=== PATIENT | female | born 1940 | race African-American/Black ===

== ENCOUNTER 2017-07-22 11:45 | Inpatient (IN) | payer MEDICARE, MEDICAID ==
[~2017-07-22] VITALS: Ht 162.6 cm; Wt 127.9 kg
[~2017-07-22 11:45] MED LIST: ACET-2853 PO; AMLO10TA80 PO; ANAS1TAB7 PO; ASPI-1159 PO; COR6 PO; GABA-531 PO; GLIP5TAB12 PO; ISOS30TA6 PO; ZET10 PO
[2017-07-22] MEDS ORDERED: ACETAMINOPHEN 325MG TABLET PO STA (13:05)
[2017-07-22] MEDS ORDERED: KETOROLAC 30MG/ML VIAL IV STA (13:05)
[2017-07-22] MEDS ORDERED: VANCOMYCIN 1 G PREMIX 200 ML IV ONE (13:15)
[2017-07-22] MEDS ORDERED: PIPERACILLIN/TAZ 3.375G PREMIX 50 ML IV ONE (13:15)
[2017-07-22] MEDS ORDERED: SODIUM CHLORIDE 0.9% 1000ML BAG (SEPSIS BOLUS) IV ONE (13:15)
[2017-07-22 13:29] LABS: BASOPHILS % 0.2 % (0.0-2.0); HEMATOCRIT. 30.4 % (36.0-48.0); HEMOGLOBIN. 10.1 g/dL (12.0-16.0); LYMPHOCYTES % 7.4 % (20.0-50.0); MEAN CORPUSCULAR HEMOGLOBIN 30.8 pg (28.0-32.0); MEAN CORPUSCULAR VOLUME 92.7 fL (81.0-99.0); MEAN PLATELET VOLUME 6.9 fl (7.4-10.4); MONOCYTES % 5.5 % (2.0-8.0); NEUTROPHILS % 86.9 % (40.0-76.0); PLATELET 310 x1000/uL (130-400); RED BLOOD CELL COUNT 3.28 mill/uL (4.2-5.4); RED CELL DISTRIBUTION WIDTH 16.6 % (11.6-14.6)
[2017-07-22 13:32] LABS: CHLORIDE 101 mEq/L (98-107)
[2017-07-22 13:34] LABS: INR 1.1; PROTHROMBIN TIME 11.9 sec (9.4-11.6)
[2017-07-22] MEDS ORDERED: IPRATROPIUM/ALBUTEROL 0.5-3(2.5)MG/3ML NEB INH PRN (15:45)
[2017-07-22] MEDS ORDERED: VANCOMYCIN 1 G PREMIX 200 ML IV SCH (15:45)
[2017-07-22] MEDS ORDERED: HYDROCODONE/ACETAMINOPHEN 5/325MG TABLET PO PRN (15:45)
[2017-07-22] MEDS ORDERED: ONDANSETRON HCL 4MG/2ML VIAL IV PRN (15:45)
[2017-07-22 15:58] LABS: BG BASE EXCESS -1.2 mmol/L (-2.0-2.0); BG CARBOXYHEMOGLOBIN 1.1 % (0.5-1.5); BG DEOXYHEMOGLOBIN 4.1 % (0.0-5.0); BG FRACTION INSPIRED OXYGEN 21; BG HCO3 ACT 22.7 mmol/L (22.0-26.0); BG METHEMOGLOBIN 0.2 % (0.0-1.5); BG OXYGEN SATURATION 95.8 % (92.0-98.5); BG OXYHEMOGLOBIN 94.6 % (94.0-97.0); BG PCO2 34.7 mmHg (35.0-45.0); BG PH 7.434 (7.350-7.450); BG PO2 80.8 mmHg (75.0-100.0); BG SAMPLE SITE LEFT RADIAL; BG TOTAL HEMOGLOBIN 9.6 g/dL (12.0-18.0); BG VENT MODE ROOM AIR
[2017-07-22] MEDS ORDERED: CLONIDINE 0.1MG TABLET PO ONE (17:00)
[2017-07-22] MEDS: CLONIDINE 0.1MG TABLET PO PRN (20:48)
[2017-07-22] MEDS: FUROSEMIDE 40MG/4ML VIAL IV SCH (20:50)
[2017-07-22 22:17] LABS: CLARITY URINE CLEAR (CLEAR); COLOR URINE YELLOW (YELLOW); KETONES URINE NEGATIVE (NEGATIVE); LEUKOCYTE ESTERASE URINE NEGATIVE (NEGATIVE); NITRITE URINE NEGATIVE (NEGATIVE); OCCULT BLOOD URINE TRACE (NEGATIVE); PROTEIN URINE NEGATIVE (NEGATIVE); SPECIFIC GRAVITY URINE 1.006 (1.005-1.030); UROBILINOGEN URINE 0.2 E.U./dL (0.2-1.0)
[2017-07-22 22:40] LABS: OPIATES URINE SCREEN NEGATIVE (NEGATIVE)
[2017-07-22 22:41] LABS: *AMPHETAMINES SCREEN URINE NEGATIVE (NEGATIVE); *BARBITURATES SCREEN URINE NEGATIVE (NEGATIVE); *BENZODIAZEPINES SCREEN URINE NEGATIVE (NEGATIVE); *COCAINE SCREEN URINE NEGATIVE (NEGATIVE); CANNABINOID URINE SCREEN NEGATIVE (NEGATIVE); METHADONE URINE SCREEN NEGATIVE (NEGATIVE); PHENCYCLIDINE URINE SCREEN NEGATIVE (NEGATIVE)
[2017-07-22 23:00] VITALS: BP 181/79
[2017-07-23] VITALS (7 sets, daily range): BP systolic 117–181; BP diastolic 37–79
[2017-07-23] MEDS ORDERED: PIPERACILLIN/TAZ 3.375G PREMIX 50 ML IV SCH ×2 (01:00→14:00)
[2017-07-23] MEDS ORDERED: DEXTROSE 50% WATER 50ML SYRINGE IV PRN (01:15)
[2017-07-23] MEDS: PIPERACILLIN/TAZ 2.25G PREMIX 50 ML IV SCH ×2 (02:26→08:10)
[2017-07-23] MEDS: ACETAMINOPHEN 325MG TABLET PO PRN ×3 (02:34→17:15)
[2017-07-23] MEDS ORDERED: VANCOMYCIN 1 G PREMIX 200 ML IV SCH (03:00)
[2017-07-23] MEDS: BLOOD SUGAR DIAGNOSTIC STRIP TEST SCH ×4 (07:48→21:45)
[2017-07-23] MEDS: INSULIN LISPRO 100 UNITS/ML SUBCUT SCH ×4 (07:49→20:37)
[2017-07-23] MEDS: FUROSEMIDE 40MG/4ML VIAL IV SCH (08:10)
[2017-07-23] MEDS: ENOXAPARIN 40MG/0.4ML SYR SUBCUT SCH (08:10)
[2017-07-23] MEDS: CLONIDINE 0.1MG TABLET PO PRN (08:11)
[2017-07-23 10:17] LABS: HEMATOCRIT. 27.9 % (36.0-48.0); HEMOGLOBIN. 9.1 g/dL (12.0-16.0); MEAN CORPUSCULAR HEMOGLOBIN 30.4 pg (28.0-32.0); MEAN CORPUSCULAR VOLUME 92.8 fL (81.0-99.0); MEAN PLATELET VOLUME 7.6 fl (7.4-10.4); PLATELET 258 x1000/uL (130-400); RED CELL DISTRIBUTION WIDTH 17.1 % (11.6-14.6)
[2017-07-23 10:38] LABS: CHLORIDE 105 mEq/L (98-107)
[2017-07-23 10:47] LABS: LDL CHOLESTEROL 62 mg/dL (5-100)
[2017-07-23 10:49] LABS: CREATINE KINASE 396 IU/L (26-192); HDL CHOLESTEROL 52 mg/dL (40-59)
[2017-07-23 10:58] LABS: T4 FREE 1.59 ng/dL (0.76-1.46)
[2017-07-23 12:38] LABS: PLATELET ESTIMATE NORMAL
[2017-07-23] MEDS: SILVER SULFADIAZINE 1% CREAM 25GM TOP SCH (16:00)
[2017-07-23] MEDS ORDERED: POTASSIUM CHLORIDE 20MEQ TABLET SR PO SCH (17:45)
[2017-07-23] MEDS: VANCOMYCIN 1 G PREMIX 200 ML IV SCH (20:32)
[2017-07-23] MEDS: MEROPENEM 1,000 MG in SODIUM CHLORIDE 0.9% 100 ML IV SCH (22:54)
[2017-07-24] VITALS (7 sets, daily range): BP systolic 124–190; BP diastolic 46–79
[2017-07-24] MEDS: ACETAMINOPHEN 325MG TABLET PO PRN ×3 (00:18→19:52)
[2017-07-24] MEDS: BLOOD SUGAR DIAGNOSTIC STRIP TEST SCH ×4 (06:15→20:40)
[2017-07-24 06:45] LABS: AMMONIA < 10 uMol/L (<32)
[2017-07-24 06:48] LABS: HEMOGLOBIN 8.3 g/dL (12.0-16.0); MEAN CORPUSCULAR HEMOGLOBIN 30.8 pg (28.0-32.0); MEAN CORPUSCULAR VOLUME 93.1 fL (81.0-99.0); PLATELET 267 x1000/uL (130-400); RED BLOOD CELL COUNT 2.69 mill/uL (4.2-5.4); RED CELL DISTRIBUTION WIDTH 16.4 % (11.6-14.6)
[2017-07-24] MEDS: INSULIN LISPRO 100 UNITS/ML SUBCUT SCH ×4 (07:36→22:03)
[2017-07-24] MEDS: ENOXAPARIN 40MG/0.4ML SYR SUBCUT SCH (09:07)
[2017-07-24] MEDS: FUROSEMIDE 40MG/4ML VIAL IV SCH (09:07)
[2017-07-24] MEDS: SILVER SULFADIAZINE 1% CREAM 25GM TOP SCH (09:08)
[2017-07-24] MEDS: AMLODIPINE 10MG TABLET PO SCH (10:14)
[2017-07-24] MEDS: MEROPENEM 1,000 MG in SODIUM CHLORIDE 0.9% 100 ML IV SCH ×2 (10:14→22:06)
[2017-07-24] MEDS ORDERED: POTASSIUM CHLORIDE 20MEQ TABLET SR PO NR (12:00)
[2017-07-24] MEDS: METOPROLOL TARTRATE 25MG TABLET PO SCH (20:29)
[2017-07-24] MEDS: VANCOMYCIN 1 G PREMIX 200 ML IV SCH (20:30)
[2017-07-24] MEDS: CLONIDINE 0.1MG TABLET PO PRN (20:36)
[2017-07-25 04:00] VITALS: BP 176/67
[2017-07-25] MEDS: BLOOD SUGAR DIAGNOSTIC STRIP TEST SCH ×4 (06:35→21:00)
[2017-07-25 06:40] LABS: HEMOGLOBIN. 7.9 g/dL (12.0-16.0); MEAN CORPUSCULAR HEMOGLOBIN 30.4 pg (28.0-32.0); MEAN CORPUSCULAR VOLUME 92.6 fL (81.0-99.0); PLATELET 273 x1000/uL (130-400); RED BLOOD CELL COUNT 2.59 mill/uL (4.2-5.4); RED CELL DISTRIBUTION WIDTH 16.5 % (11.6-14.6)
[2017-07-25 06:49] LABS: CHLORIDE 106 mEq/L (98-107)
[2017-07-25] MEDS: INSULIN LISPRO 100 UNITS/ML SUBCUT SCH ×4 (07:58→21:00)
[2017-07-25 08:00] VITALS: BP 170/65
[2017-07-25] MEDS: SILVER SULFADIAZINE 1% CREAM 25GM TOP SCH (09:00)
[2017-07-25] MEDS: AMLODIPINE 10MG TABLET PO SCH (10:06)
[2017-07-25] MEDS: FUROSEMIDE 40MG/4ML VIAL IV SCH (10:06)
[2017-07-25] MEDS: METOPROLOL TARTRATE 25MG TABLET PO SCH (10:06)
[2017-07-25] MEDS: MEROPENEM 1,000 MG in SODIUM CHLORIDE 0.9% 100 ML IV SCH (10:06)
[2017-07-25] MEDS: ENOXAPARIN 40MG/0.4ML SYR SUBCUT SCH (10:07)
[2017-07-25 12:00] VITALS: BP 157/66
[2017-07-25 13:56] LABS: PLATELET ESTIMATE NORMAL
[2017-07-25] MEDS: VANCOMYCIN 1 G PREMIX 200 ML IV SCH (14:34)
[2017-07-25 16:00] VITALS: BP 138/74
[2017-07-25 20:43] VITALS: BP 155/70
[2017-07-25] MEDS: METOPROLOL TARTRATE 50MG TABLET PO SCH (22:07)
[2017-07-25] MEDS: ACETAMINOPHEN 325MG TABLET PO PRN (22:07)
[2017-07-26] VITALS (7 sets, daily range): BP systolic 121–185; BP diastolic 48–80
[2017-07-26] MEDS: MEROPENEM 1,000 MG in SODIUM CHLORIDE 0.9% 100 ML IV SCH ×3 (00:18→22:30)
[2017-07-26] MEDS: VANCOMYCIN 1 G PREMIX 200 ML IV SCH (00:52)
[2017-07-26 06:26] LABS: HEMATOCRIT 27.2 % (36.0-48.0); HEMOGLOBIN 8.8 g/dL (12.0-16.0); MEAN CORPUSCULAR VOLUME 92.7 fL (81.0-99.0); RED BLOOD CELL COUNT 2.93 mill/uL (4.2-5.4); RED CELL DISTRIBUTION WIDTH 16.6 % (11.6-14.6)
[2017-07-26] MEDS: CLONIDINE 0.1MG TABLET PO PRN (06:39)
[2017-07-26 07:55] LABS: CHLORIDE 102 mEq/L (98-107)
[2017-07-26] MEDS: BLOOD SUGAR DIAGNOSTIC STRIP TEST SCH ×4 (08:00→21:00)
[2017-07-26] MEDS: INSULIN LISPRO 100 UNITS/ML SUBCUT SCH ×4 (08:00→21:00)
[2017-07-26] MEDS: FUROSEMIDE 40MG/4ML VIAL IV SCH (09:56)
[2017-07-26] MEDS: AMLODIPINE 10MG TABLET PO SCH (09:57)
[2017-07-26] MEDS: METOPROLOL TARTRATE 50MG TABLET PO SCH ×2 (09:57→21:05)
[2017-07-26] MEDS: SILVER SULFADIAZINE 1% CREAM 25GM TOP SCH (09:58)
[2017-07-26] MEDS: ENOXAPARIN 40MG/0.4ML SYR SUBCUT SCH (09:58)
[2017-07-26 10:18] LABS: PLATELET 282 x1000/uL (130-400)
[2017-07-26] MEDS: ACETAMINOPHEN 325MG TABLET PO PRN (16:25)
[2017-07-26] MEDS: LINEZOLID 600 MG PREMIX 300 ML IV SCH (19:16)
[2017-07-27] VITALS (10 sets, daily range): BP systolic 127–154; BP diastolic 51–71
[2017-07-27] MEDS: LINEZOLID 600 MG PREMIX 300 ML IV SCH ×2 (05:44→18:02)
[2017-07-27 06:48] LABS: HEMATOCRIT 24.2 % (36.0-48.0); HEMOGLOBIN 7.9 g/dL (12.0-16.0); MEAN CORPUSCULAR HEMOGLOBIN 30.1 pg (28.0-32.0); MEAN CORPUSCULAR VOLUME 92.2 fL (81.0-99.0); PLATELET 307 x1000/uL (130-400); RED BLOOD CELL COUNT 2.63 mill/uL (4.2-5.4); RED CELL DISTRIBUTION WIDTH 16.6 % (11.6-14.6)
[2017-07-27 07:29] LABS: CHLORIDE 99 mEq/L (98-107)
[2017-07-27] MEDS: BLOOD SUGAR DIAGNOSTIC STRIP TEST SCH ×4 (07:40→20:42)
[2017-07-27] MEDS: SILVER SULFADIAZINE 1% CREAM 25GM TOP SCH (09:00)
[2017-07-27] MEDS: ENOXAPARIN 40MG/0.4ML SYR SUBCUT SCH (09:00)
[2017-07-27] MEDS: INSULIN LISPRO 100 UNITS/ML SUBCUT SCH ×4 (09:20→20:44)
[2017-07-27] MEDS: FUROSEMIDE 40MG/4ML VIAL IV SCH (09:22)
[2017-07-27] MEDS: METOPROLOL TARTRATE 50MG TABLET PO SCH ×2 (09:22→20:39)
[2017-07-27] MEDS: AMLODIPINE 10MG TABLET PO SCH (09:22)
[2017-07-27] MEDS: MEROPENEM 1,000 MG in SODIUM CHLORIDE 0.9% 100 ML IV SCH ×2 (10:55→22:29)
[2017-07-27] MEDS ORDERED: POTASSIUM CHLORIDE 20MEQ TABLET SR PO SCH (13:15)
[2017-07-28 00:06] VITALS: BP 154/61
[2017-07-28] MEDS: ACETAMINOPHEN 325MG TABLET PO PRN ×2 (01:01→16:47)
[2017-07-28 04:00] VITALS: BP 122/62
[2017-07-28] MEDS: LINEZOLID 600 MG PREMIX 300 ML IV SCH ×2 (05:45→17:15)
[2017-07-28 08:00] VITALS: BP 155/54
[2017-07-28] MEDS: BLOOD SUGAR DIAGNOSTIC STRIP TEST SCH ×4 (08:24→21:00)
[2017-07-28] MEDS: AMLODIPINE 10MG TABLET PO SCH (08:31)
[2017-07-28] MEDS: FUROSEMIDE 40MG/4ML VIAL IV SCH (08:31)
[2017-07-28] MEDS: METOPROLOL TARTRATE 50MG TABLET PO SCH ×2 (08:32→21:20)
[2017-07-28] MEDS: ENOXAPARIN 40MG/0.4ML SYR SUBCUT SCH (08:33)
[2017-07-28] MEDS: INSULIN LISPRO 100 UNITS/ML SUBCUT SCH ×4 (08:35→21:00)
[2017-07-28] MEDS: SILVER SULFADIAZINE 1% CREAM 25GM TOP SCH (09:00)
[2017-07-28] MEDS: MEROPENEM 1,000 MG in SODIUM CHLORIDE 0.9% 100 ML IV SCH (10:53)
[2017-07-28 11:59] VITALS: BP 152/72
[2017-07-28 16:00] VITALS: BP 129/50
[2017-07-28] MEDS ORDERED: LEVOFLOXACIN 250MG TABLET PO SCH (16:00)
[2017-07-28] MEDS ORDERED: ACETAMINOPHEN 650MG SUPP PR PRN (17:30)
[2017-07-28 17:37] LABS: BG BASE EXCESS 12.6 mmol/L (-2.0-2.0); BG CARBOXYHEMOGLOBIN 0.3 % (0.5-1.5); BG DEOXYHEMOGLOBIN 2.9 % (0.0-5.0); BG FRACTION INSPIRED OXYGEN 24; BG HCO3 ACT 37.8 mmol/L (22.0-26.0); BG METHEMOGLOBIN 0.2 % (0.0-1.5); BG OXYGEN SATURATION 97.1 % (92.0-98.5); BG OXYHEMOGLOBIN 96.6 % (94.0-97.0); BG PCO2 52.3 mmHg (35.0-45.0); BG PH 7.477 (7.350-7.450); BG PO2 94.1 mmHg (75.0-100.0); BG SAMPLE SITE RIGHT RADIAL; BG VENT MODE NASAL CANNULA
[2017-07-28 19:24] LABS: HEMATOCRIT. 28.3 % (36.0-48.0); HEMOGLOBIN. 9.1 g/dL (12.0-16.0); MEAN CORPUSCULAR HEMOGLOBIN 29.3 pg (28.0-32.0); MEAN CORPUSCULAR VOLUME 91.2 fL (81.0-99.0); MEAN PLATELET VOLUME 7.7 fl (7.4-10.4); PLATELET 397 x1000/uL (130-400); RED BLOOD CELL COUNT 3.11 mill/uL (4.2-5.4); RED CELL DISTRIBUTION WIDTH 17.4 % (11.6-14.6)
[2017-07-28 19:47] LABS: NUCLEATED RED BLOOD CELLS 1 /100 WBC
[2017-07-28 19:48] LABS: PLATELET ESTIMATE NORMAL
[2017-07-28] MEDS: SODIUM CHL 0.45% + KCL 20MEQ/L 1,000 ML IV SCH (19:50)
[2017-07-28 20:06] VITALS: BP 134/49
[2017-07-29] VITALS (7 sets, daily range): BP systolic 134–168; BP diastolic 53–71
[2017-07-29] MEDS: LINEZOLID 600 MG PREMIX 300 ML IV SCH ×2 (05:16→17:27)
[2017-07-29] MEDS: BLOOD SUGAR DIAGNOSTIC STRIP TEST SCH ×4 (07:40→21:20)
[2017-07-29] MEDS: FUROSEMIDE 40MG/4ML VIAL IV SCH (08:47)
[2017-07-29] MEDS: AMLODIPINE 10MG TABLET PO SCH (08:47)
[2017-07-29] MEDS: ENOXAPARIN 40MG/0.4ML SYR SUBCUT SCH (08:47)
[2017-07-29] MEDS: SILVER SULFADIAZINE 1% CREAM 25GM TOP SCH (08:47)
[2017-07-29] MEDS: METOPROLOL TARTRATE 50MG TABLET PO SCH ×2 (08:47→21:15)
[2017-07-29] MEDS: INSULIN LISPRO 100 UNITS/ML SUBCUT SCH ×4 (08:48→21:16)
[2017-07-29] MEDS: SODIUM CHL 0.45% + KCL 20MEQ/L 1,000 ML IV SCH (11:16)
[2017-07-29] MEDS ORDERED: LEVOFLOXACIN 500MG TABLET PO SCH (11:27)
[2017-07-29] MEDS: CEFEPIME 2,000 MG in DEXT 5% WATER 100 ML IV SCH (18:35)
[2017-07-30] VITALS (7 sets, daily range): BP systolic 134–161; BP diastolic 60–72
[2017-07-30] MEDS: CEFEPIME 2,000 MG in DEXT 5% WATER 100 ML IV SCH ×2 (05:48→20:49)
[2017-07-30] MEDS: LINEZOLID 600 MG PREMIX 300 ML IV SCH ×2 (05:48→20:50)
[2017-07-30] MEDS: BLOOD SUGAR DIAGNOSTIC STRIP TEST SCH ×4 (06:50→21:14)
[2017-07-30 07:21] LABS: AMMONIA 41 uMol/L (<32)
[2017-07-30 07:34] LABS: BASOPHILS % 0.4 % (0.0-2.0); EOSINOPHILS % 0.9 % (0.0-5.0); HEMATOCRIT. 28.7 % (36.0-48.0); HEMOGLOBIN. 9.3 g/dL (12.0-16.0); LYMPHOCYTES % 7.7 % (20.0-50.0); MEAN CORPUSCULAR HEMOGLOBIN 29.5 pg (28.0-32.0); MEAN CORPUSCULAR VOLUME 91.3 fL (81.0-99.0); MEAN PLATELET VOLUME 7.7 fl (7.4-10.4); MONOCYTES % 8.5 % (2.0-8.0); NEUTROPHILS % 82.5 % (40.0-76.0); PLATELET 465 x1000/uL (130-400); RED BLOOD CELL COUNT 3.14 mill/uL (4.2-5.4); RED CELL DISTRIBUTION WIDTH 17.2 % (11.6-14.6)
[2017-07-30 07:54] LABS: VITAMIN B12 SERUM 1126 pg/mL (211-911)
[2017-07-30] MEDS: SODIUM CHL 0.45% + KCL 20MEQ/L 1,000 ML IV SCH ×2 (08:17→20:50)
[2017-07-30] MEDS: METOPROLOL TARTRATE 50MG TABLET PO SCH ×2 (08:19→21:14)
[2017-07-30] MEDS: AMLODIPINE 10MG TABLET PO SCH (08:19)
[2017-07-30] MEDS: FUROSEMIDE 40MG/4ML VIAL IV SCH (08:19)
[2017-07-30] MEDS: ENOXAPARIN 40MG/0.4ML SYR SUBCUT SCH (08:19)
[2017-07-30] MEDS: INSULIN LISPRO 100 UNITS/ML SUBCUT SCH ×4 (08:21→21:00)
[2017-07-30] MEDS: LACTULOSE 20G/30ML UDC PO SCH (12:20)
[2017-07-30] MEDS: SILVER SULFADIAZINE 1% CREAM 25GM TOP SCH (12:21)
[2017-07-31] VITALS (12 sets, daily range): BP systolic 137–169; BP diastolic 62–75
[2017-07-31] MEDS: LINEZOLID 600 MG PREMIX 300 ML IV SCH ×2 (06:16→17:27)
[2017-07-31] MEDS: CEFEPIME 2,000 MG in DEXT 5% WATER 100 ML IV SCH ×2 (06:16→17:27)
[2017-07-31 06:50] LABS: AMMONIA 46 uMol/L (<32)
[2017-07-31 06:54] LABS: HEMATOCRIT 29.2 % (36.0-48.0); HEMOGLOBIN 9.3 g/dL (12.0-16.0); MEAN CORPUSCULAR HEMOGLOBIN 29.2 pg (28.0-32.0); MEAN CORPUSCULAR VOLUME 91.6 fL (81.0-99.0); PLATELET 497 x1000/uL (130-400); RED BLOOD CELL COUNT 3.19 mill/uL (4.2-5.4); RED CELL DISTRIBUTION WIDTH 16.9 % (11.6-14.6)
[2017-07-31 07:03] LABS: CHLORIDE 97 mEq/L (98-107)
[2017-07-31] MEDS: BLOOD SUGAR DIAGNOSTIC STRIP TEST SCH ×4 (07:32→21:00)
[2017-07-31] MEDS: INSULIN LISPRO 100 UNITS/ML SUBCUT SCH ×4 (08:06→22:25)
[2017-07-31] MEDS: METOPROLOL TARTRATE 50MG TABLET PO SCH ×2 (08:07→22:21)
[2017-07-31] MEDS: LACTULOSE 20G/30ML UDC PO SCH ×2 (08:07→17:27)
[2017-07-31] MEDS: ENOXAPARIN 40MG/0.4ML SYR SUBCUT SCH (08:07)
[2017-07-31] MEDS: AMLODIPINE 10MG TABLET PO SCH (08:08)
[2017-07-31] MEDS: FUROSEMIDE 40MG/4ML VIAL IV SCH (08:10)
[2017-07-31] MEDS: SILVER SULFADIAZINE 1% CREAM 25GM TOP SCH (08:13)
[2017-07-31] MEDS: SODIUM CHL 0.45% + KCL 20MEQ/L 1,000 ML IV SCH (12:29)
[2017-08-01] VITALS (11 sets, daily range): BP systolic 114–174; BP diastolic 55–87
[2017-08-01] MEDS: LINEZOLID 600 MG PREMIX 300 ML IV SCH ×2 (06:36→17:33)
[2017-08-01] MEDS: CEFEPIME 2,000 MG in DEXT 5% WATER 100 ML IV SCH ×2 (06:36→17:33)
[2017-08-01 07:22] LABS: HEMATOCRIT 28.9 % (36.0-48.0); HEMOGLOBIN 9.5 g/dL (12.0-16.0); MEAN CORPUSCULAR HEMOGLOBIN 30.1 pg (28.0-32.0); MEAN CORPUSCULAR VOLUME 91.8 fL (81.0-99.0); PLATELET 532 x1000/uL (130-400); RED BLOOD CELL COUNT 3.15 mill/uL (4.2-5.4); RED CELL DISTRIBUTION WIDTH 17.1 % (11.6-14.6)
[2017-08-01] MEDS: BLOOD SUGAR DIAGNOSTIC STRIP TEST SCH ×4 (07:30→21:00)
[2017-08-01 07:49] LABS: CHLORIDE 98 mEq/L (98-107)
[2017-08-01] MEDS: FUROSEMIDE 40MG/4ML VIAL IV SCH (09:16)
[2017-08-01] MEDS: ENOXAPARIN 40MG/0.4ML SYR SUBCUT SCH (09:16)
[2017-08-01] MEDS: LACTULOSE 20G/30ML UDC PO SCH ×2 (09:16→17:33)
[2017-08-01] MEDS: AMLODIPINE 10MG TABLET PO SCH (09:16)
[2017-08-01] MEDS: METOPROLOL TARTRATE 50MG TABLET PO SCH ×2 (09:17→21:24)
[2017-08-01] MEDS: INSULIN LISPRO 100 UNITS/ML SUBCUT SCH ×4 (09:18→21:34)
[2017-08-01] MEDS: SILVER SULFADIAZINE 1% CREAM 25GM TOP SCH (09:18)
[2017-08-01 12:44] LABS: BG BASE EXCESS 11.2 mmol/L (-2.0-2.0); BG CARBOXYHEMOGLOBIN 0.1 % (0.5-1.5); BG DEOXYHEMOGLOBIN 2.5 % (0.0-5.0); BG FRACTION INSPIRED OXYGEN 28; BG HCO3 ACT 35.9 mmol/L (22.0-26.0); BG METHEMOGLOBIN 0.3 % (0.0-1.5); BG OXYGEN SATURATION 97.5 % (92.0-98.5); BG OXYHEMOGLOBIN 97.1 % (94.0-97.0); BG PCO2 48.8 mmHg (35.0-45.0); BG PH 7.485 (7.350-7.450); BG PO2 104.6 mmHg (75.0-100.0); BG SAMPLE SITE RIGHT RADIAL; BG VENT MODE NASAL CANNULA
[2017-08-01 15:29] LABS: CLARITY URINE CLEAR (CLEAR); COLOR URINE YELLOW (YELLOW); KETONES URINE NEGATIVE (NEGATIVE); LEUKOCYTE ESTERASE URINE TRACE (NEGATIVE); NITRITE URINE NEGATIVE (NEGATIVE); OCCULT BLOOD URINE 2+ (NEGATIVE); PH URINE 5.5 (4.5-8.0); PROTEIN URINE TRACE (NEGATIVE); SPECIFIC GRAVITY URINE 1.014 (1.005-1.030); UROBILINOGEN URINE 0.2 E.U./dL (0.2-1.0)
[2017-08-01 16:08] LABS: AMMONIA 31 uMol/L (<32)
[2017-08-02] VITALS (11 sets, daily range): BP systolic 126–142; BP diastolic 51–66
[2017-08-02] MEDS: CEFEPIME 2,000 MG in DEXT 5% WATER 100 ML IV SCH ×2 (05:58→17:13)
[2017-08-02] MEDS: LINEZOLID 600 MG PREMIX 300 ML IV SCH ×2 (05:58→18:34)
[2017-08-02 06:34] LABS: HEMOGLOBIN. 10.7 g/dL (12.0-16.0); MEAN CORPUSCULAR HEMOGLOBIN 29.8 pg (28.0-32.0); MEAN CORPUSCULAR VOLUME 92.1 fL (81.0-99.0); PLATELET 518 x1000/uL (130-400); RED BLOOD CELL COUNT 3.59 mill/uL (4.2-5.4); RED CELL DISTRIBUTION WIDTH 16.7 % (11.6-14.6)
[2017-08-02 06:57] LABS: CHLORIDE 96 mEq/L (98-107)
[2017-08-02] MEDS: BLOOD SUGAR DIAGNOSTIC STRIP TEST SCH ×4 (07:30→21:00)
[2017-08-02] MEDS: METOPROLOL TARTRATE 50MG TABLET PO SCH ×2 (08:50→22:02)
[2017-08-02] MEDS: LACTULOSE 20G/30ML UDC PO SCH ×2 (08:50→17:13)
[2017-08-02] MEDS: FUROSEMIDE 40MG/4ML VIAL IV SCH (08:50)
[2017-08-02] MEDS: AMLODIPINE 10MG TABLET PO SCH (08:51)
[2017-08-02] MEDS: ENOXAPARIN 40MG/0.4ML SYR SUBCUT SCH (08:52)
[2017-08-02] MEDS: SILVER SULFADIAZINE 1% CREAM 25GM TOP SCH (09:00)
[2017-08-02] MEDS: INSULIN LISPRO 100 UNITS/ML SUBCUT SCH ×4 (09:15→22:12)
[2017-08-02 12:38] LABS: PLATELET ESTIMATE INCREASED
[2017-08-02] MEDS: QUETIAPINE FUMARATE 25MG TABLET PO SCH (15:53)
[2017-08-03] VITALS (15 sets, daily range): BP systolic 98–140; BP diastolic 48–68
[2017-08-03] MEDS: CEFEPIME 2,000 MG in DEXT 5% WATER 100 ML IV SCH ×2 (05:35→17:31)
[2017-08-03] MEDS: LINEZOLID 600 MG PREMIX 300 ML IV SCH ×2 (06:00→18:18)
[2017-08-03 06:54] LABS: HEMATOCRIT 30.8 % (36.0-48.0); MEAN CORPUSCULAR HEMOGLOBIN 29.6 pg (28.0-32.0); MEAN CORPUSCULAR VOLUME 91.1 fL (81.0-99.0); PLATELET 565 x1000/uL (130-400); RED BLOOD CELL COUNT 3.38 mill/uL (4.2-5.4); RED CELL DISTRIBUTION WIDTH 16.3 % (11.6-14.6)
[2017-08-03] MEDS: BLOOD SUGAR DIAGNOSTIC STRIP TEST SCH ×4 (07:45→21:00)
[2017-08-03 08:00] LABS: CHLORIDE 96 mEq/L (98-107)
[2017-08-03] MEDS: INSULIN LISPRO 100 UNITS/ML SUBCUT SCH ×4 (08:02→22:30)
[2017-08-03] MEDS: SILVER SULFADIAZINE 1% CREAM 25GM TOP SCH (09:00)
[2017-08-03] MEDS: FUROSEMIDE 40MG/4ML VIAL IV SCH (09:13)
[2017-08-03] MEDS: LACTULOSE 20G/30ML UDC PO SCH ×2 (09:13→17:31)
[2017-08-03] MEDS: AMLODIPINE 10MG TABLET PO SCH (09:14)
[2017-08-03] MEDS: QUETIAPINE FUMARATE 25MG TABLET PO SCH (09:14)
[2017-08-03] MEDS: ENOXAPARIN 40MG/0.4ML SYR SUBCUT SCH (09:14)
[2017-08-03] MEDS: METOPROLOL TARTRATE 50MG TABLET PO SCH ×2 (09:14→22:28)
[2017-08-03] MEDS: ACETAMINOPHEN 325MG TABLET PO PRN (14:48)
[2017-08-04] VITALS (15 sets, daily range): BP systolic 114–144; BP diastolic 48–73
[2017-08-04] MEDS: CEFEPIME 2,000 MG in DEXT 5% WATER 100 ML IV SCH ×2 (05:29→17:49)
[2017-08-04] MEDS: LINEZOLID 600 MG PREMIX 300 ML IV SCH ×2 (05:32→21:03)
[2017-08-04 06:33] LABS: BASOPHILS % 0.7 % (0.0-2.0); EOSINOPHILS % 1.7 % (0.0-5.0); HEMATOCRIT. 32.4 % (36.0-48.0); HEMOGLOBIN. 10.4 g/dL (12.0-16.0); LYMPHOCYTES % 14.9 % (20.0-50.0); MEAN CORPUSCULAR HEMOGLOBIN 29.4 pg (28.0-32.0); MEAN CORPUSCULAR VOLUME 91.6 fL (81.0-99.0); MEAN PLATELET VOLUME 7.1 fl (7.4-10.4); MONOCYTES % 10.9 % (2.0-8.0); NEUTROPHILS % 71.8 % (40.0-76.0); PLATELET 612 x1000/uL (130-400); RED BLOOD CELL COUNT 3.53 mill/uL (4.2-5.4); RED CELL DISTRIBUTION WIDTH 16.6 % (11.6-14.6)
[2017-08-04 07:36] LABS: CHLORIDE 94 mEq/L (98-107)
[2017-08-04] MEDS: BLOOD SUGAR DIAGNOSTIC STRIP TEST SCH ×4 (07:39→21:09)
[2017-08-04] MEDS: INSULIN LISPRO 100 UNITS/ML SUBCUT SCH ×4 (08:44→21:00)
[2017-08-04] MEDS: LACTULOSE 20G/30ML UDC PO SCH ×2 (08:44→17:56)
[2017-08-04] MEDS: METOPROLOL TARTRATE 50MG TABLET PO SCH ×2 (08:44→21:04)
[2017-08-04] MEDS: AMLODIPINE 10MG TABLET PO SCH (08:44)
[2017-08-04] MEDS: QUETIAPINE FUMARATE 25MG TABLET PO SCH (08:44)
[2017-08-04] MEDS: ENOXAPARIN 40MG/0.4ML SYR SUBCUT SCH (08:45)
[2017-08-04] MEDS: FUROSEMIDE 40MG/4ML VIAL IV SCH (08:45)
[2017-08-05] VITALS (11 sets, daily range): BP systolic 112–169; BP diastolic 60–76
[2017-08-05] MEDS: CEFEPIME 2,000 MG in DEXT 5% WATER 100 ML IV SCH ×2 (05:39→18:43)
[2017-08-05] MEDS: LINEZOLID 600 MG PREMIX 300 ML IV SCH ×2 (05:39→18:44)
[2017-08-05] MEDS: BLOOD SUGAR DIAGNOSTIC STRIP TEST SCH ×4 (05:49→21:00)
[2017-08-05] MEDS: INSULIN LISPRO 100 UNITS/ML SUBCUT SCH ×4 (05:52→21:00)
[2017-08-05] MEDS: FUROSEMIDE 40MG/4ML VIAL IV SCH (08:53)
[2017-08-05] MEDS: LACTULOSE 20G/30ML UDC PO SCH ×2 (08:53→16:25)
[2017-08-05] MEDS: ENOXAPARIN 40MG/0.4ML SYR SUBCUT SCH (08:53)
[2017-08-05] MEDS: AMLODIPINE 10MG TABLET PO SCH (08:54)
[2017-08-05] MEDS: QUETIAPINE FUMARATE 25MG TABLET PO SCH (08:54)
[2017-08-05] MEDS: METOPROLOL TARTRATE 50MG TABLET PO SCH ×2 (08:54→22:02)
[2017-08-05] MEDS: MEMANTINE HCL 5MG TABLET PO SCH (22:03)
[2017-08-06] VITALS (16 sets, daily range): BP systolic 128–148; BP diastolic 59–80
[2017-08-06 06:18] LABS: HEMATOCRIT 31.8 % (36.0-48.0); HEMOGLOBIN 10.4 g/dL (12.0-16.0); MEAN CORPUSCULAR HEMOGLOBIN 29.8 pg (28.0-32.0); PLATELET 629 x1000/uL (130-400); RED BLOOD CELL COUNT 3.49 mill/uL (4.2-5.4); RED CELL DISTRIBUTION WIDTH 16.2 % (11.6-14.6)
[2017-08-06 06:42] LABS: CHLORIDE 93 mEq/L (98-107)
[2017-08-06] MEDS: BLOOD SUGAR DIAGNOSTIC STRIP TEST SCH ×4 (08:17→20:24)
[2017-08-06] MEDS: MEMANTINE HCL 5MG TABLET PO SCH ×2 (09:05→20:18)
[2017-08-06] MEDS: ENOXAPARIN 40MG/0.4ML SYR SUBCUT SCH (09:05)
[2017-08-06] MEDS: QUETIAPINE FUMARATE 25MG TABLET PO SCH (09:05)
[2017-08-06] MEDS: AMLODIPINE 10MG TABLET PO SCH (09:05)
[2017-08-06] MEDS: LACTULOSE 20G/30ML UDC PO SCH ×2 (09:06→18:31)
[2017-08-06] MEDS: METOPROLOL TARTRATE 50MG TABLET PO SCH ×2 (09:06→20:17)
[2017-08-06] MEDS: INSULIN LISPRO 100 UNITS/ML SUBCUT SCH ×4 (09:07→20:36)
[2017-08-06] MEDS: FUROSEMIDE 40MG/4ML VIAL IV SCH (09:08)
[2017-08-06 16:31] LABS: CLARITY URINE CLEAR (CLEAR); COLOR URINE YELLOW (YELLOW); KETONES URINE NEGATIVE (NEGATIVE); LEUKOCYTE ESTERASE URINE TRACE (NEGATIVE); NITRITE URINE NEGATIVE (NEGATIVE); OCCULT BLOOD URINE 1+ (NEGATIVE); PH URINE >=9.0 (4.5-8.0); PROTEIN URINE 2+ (NEGATIVE); SPECIFIC GRAVITY URINE 1.019 (1.005-1.030)
[2017-08-06] MEDS ORDERED: ENOXAPARIN 30MG/0.3ML SYR SUBCUT SCH (21:00)
== END 2017-08-06 22:05 | DRG 871 ==
LOC: ER 11:45 → 7WST 14:53 → EDBEDREQ 15:00 → EDBEDREQSVC 15:00 → ENRESERV 19:43 → UNDOADMIN 19:45 → 7WST 19:45 → ENRESERV 20:40 → 5EST 07-30 14:50
PROVIDERS: ADMIT Internal Medicine; ATTEND Internal Medicine
PROC: 02HV33Z Insertion of Infusion Device into Superior Vena Cava, Percutaneous Approach (ICD-10-PCS; 2017-07-25)
PROC: B548ZZA Ultrasonography of Superior Vena Cava, Guidance (ICD-10-PCS; 2017-07-25)
PROC: 30233N1 Transfusion of Nonautologous Red Blood Cells into Peripheral Vein, Percutaneous Approach (ICD-10-PCS; principal; 2017-07-27)
DX: A41.9 Sepsis, unspecified organism (principal); I50.33 Acute on chronic diastolic (congestive) heart failure; J18.9 Pneumonia, unspecified organism; G93.40 Encephalopathy, unspecified; L03.116 Cellulitis of left lower limb; I13.0 Hypertensive heart and chronic kidney disease with heart failure and stage 1 through stage 4 chronic kidney disease, or unspecified chronic kidney disease; J98.11 Atelectasis; L03.115 Cellulitis of right lower limb; L97.929 Non-pressure chronic ulcer of unspecified part of left lower leg with unspecified severity; Z68.43 Body mass index [BMI] 50.0-59.9, adult; I27.20 Pulmonary hypertension, unspecified; I89.0 Lymphedema, not elsewhere classified; E66.01 Morbid (severe) obesity due to excess calories; I65.22 Occlusion and stenosis of left carotid artery; E87.6 Hypokalemia; R65.20 Severe sepsis without septic shock; D64.9 Anemia, unspecified; E11.22 Type 2 diabetes mellitus with diabetic chronic kidney disease; E11.622 Type 2 diabetes mellitus with other skin ulcer; I83.029 Varicose veins of left lower extremity with ulcer of unspecified site; I87.8 Other specified disorders of veins; M17.0 Bilateral primary osteoarthritis of knee; M47.9 Spondylosis, unspecified; N18.9 Chronic kidney disease, unspecified; R13.10 Dysphagia, unspecified; R62.7 Adult failure to thrive; Z79.2 Long term (current) use of antibiotics; Z79.82 Long term (current) use of aspirin; Z79.84 Long term (current) use of oral hypoglycemic drugs; Z79.899 Other long term (current) drug therapy; Z86.73 Personal history of transient ischemic attack (TIA), and cerebral infarction without residual deficits
CPT/HCPCS: 36415; 36569; 36600; 51702; 70450; 70551; 71045; 72125; 73090; 73130; 73700; 73718; 76937; 80048; 80053; 80061; 80076; 80202; 80305; 81003; 82140; 82270; 82375; 82550; 82607; 82805; 82962; 83036; 83605; 84145; 84425; 84439; 84443; 84484; 85007; 85025; 85027; 85610; 86850; 86900; 86920; 87040; 87070; 87077; 87086; 87186; 87205; 92610; 93005; 93306; 93880; 93971; 95816; 96365; 96367; 96375; 97110; 97162; 97530; 99285; A6261; C1725; J0692; J1650; J1815; J1885; J1940; J2020; J2185; J2543; J3370; J3480; J7030; J7040; J7050; J7060; J7620; P9016; A4315

== ENCOUNTER 2019-01-18 08:08 | Inpatient (IN) | payer MEDICARE, MEDICAID ==
[~2019-01-18] VITALS: Ht 165.1 cm; Wt 129.3 kg
[~2019-01-18 08:08] MED LIST changes: -ASPI-1159 PO; +ASPI-1393 PO; +EZET10TA13 PO; -ZET10 PO
[2019-01-18] MEDS ORDERED: PIPERACILLIN/TAZ 3.375G PREMIX 50 ML IV ONE (10:45)
[2019-01-18] MEDS ORDERED: VANCOMYCIN 1 G PREMIX 200 ML IV ONE (10:45)
[2019-01-18 10:49] LABS: CHLORIDE 103 mEq/L (98-107)
[2019-01-18 10:50] LABS: HEMOGLOBIN. 9.5 g/dL (12.0-16.0); MEAN CORPUSCULAR HEMOGLOBIN 29.6 pg (28.0-32.0); MEAN CORPUSCULAR VOLUME 92.9 fL (81.0-99.0); MEAN PLATELET VOLUME 7.5 fl (7.4-10.4); PLATELET 435 x1000/uL (130-400); PROTHROMBIN TIME 10.5 sec (9.6-11.0); RED BLOOD CELL COUNT 3.23 mill/uL (4.2-5.4); RED CELL DISTRIBUTION WIDTH 16.3 % (11.6-14.6)
[2019-01-18 11:38] LABS: PLATELET ESTIMATE NORMAL
[2019-01-18] MEDS ORDERED: ACETAMINOPHEN 500MG TABLET PO ONE (14:00)
[2019-01-18 17:31] VITALS: BP 125/67
[2019-01-18] MEDS ORDERED: ACETAMINOPHEN 500MG TABLET PO PRN (19:15)
[2019-01-18] MEDS ORDERED: DEXTROSE 50% WATER 50ML SYRINGE IV PRN ×3 (19:15→20:30)
[2019-01-18 20:00] VITALS: BP 140/54
[2019-01-18] MEDS: AMLODIPINE 10MG TABLET PO SCH (20:54)
[2019-01-18] MEDS: SODIUM CHLORIDE 0.45% 1,000 ML IV SCH (20:55)
[2019-01-18] MEDS ORDERED: INSULIN LISPRO 100 UNITS/ML SUBCUT SCH (21:00)
[2019-01-18] MEDS ORDERED: BLOOD SUGAR DIAGNOSTIC STRIP TEST SCH (21:00)
[2019-01-18] MEDS: BLOOD SUGAR DIAGNOSTIC STRIP TEST SCH (21:00)
[2019-01-18] MEDS: ASPIRIN 81MG EC TABLET PO SCH (21:02)
[2019-01-18] MEDS: GABAPENTIN 300MG CAPSULE PO SCH (21:02)
[2019-01-18] MEDS: ISOSORBIDE MONONITRATE 30MG TABLET SR 24HR PO SCH (21:06)
[2019-01-18] MEDS: INSULIN LISPRO 100 UNITS/ML SUBCUT SCH (21:20)
[2019-01-19] VITALS: BP 142/62
[2019-01-19 04:00] VITALS: BP 157/66
[2019-01-19] MEDS: BLOOD SUGAR DIAGNOSTIC STRIP TEST SCH ×4 (07:01→20:46)
[2019-01-19] MEDS: INSULIN LISPRO 100 UNITS/ML SUBCUT SCH ×4 (07:02→21:08)
[2019-01-19 08:00] VITALS: BP 146/67
[2019-01-19] MEDS: ASPIRIN 81MG EC TABLET PO SCH (09:00)
[2019-01-19] MEDS: GABAPENTIN 300MG CAPSULE PO SCH (09:00)
[2019-01-19] MEDS: SODIUM CHLORIDE 0.45% 1,000 ML IV SCH ×2 (09:01→22:51)
[2019-01-19] MEDS: ISOSORBIDE MONONITRATE 30MG TABLET SR 24HR PO SCH (09:01)
[2019-01-19] MEDS: AMLODIPINE 10MG TABLET PO SCH (09:01)
[2019-01-19] MEDS: CARVEDILOL 6.25 MG TABLET PO SCH ×2 (09:01→17:22)
[2019-01-19 10:39] LABS: BASOPHILS % 0.6 % (0.0-2.0); EOSINOPHILS % 0.2 % (0.0-5.0); HEMATOCRIT. 27.6 % (36.0-48.0); HEMOGLOBIN. 8.9 g/dL (12.0-16.0); MEAN CORPUSCULAR HEMOGLOBIN 29.9 pg (28.0-32.0); MEAN CORPUSCULAR VOLUME 93.1 fL (81.0-99.0); MEAN PLATELET VOLUME 7.2 fl (7.4-10.4); MONOCYTES % 13.8 % (2.0-8.0); NEUTROPHILS % 72.4 % (40.0-76.0); PLATELET 386 x1000/uL (130-400); RED BLOOD CELL COUNT 2.96 mill/uL (4.2-5.4); RED CELL DISTRIBUTION WIDTH 15.7 % (11.6-14.6)
[2019-01-19 10:46] LABS: CHLORIDE 109 mEq/L (98-107)
[2019-01-19 10:55] LABS: PHOSPHORUS 3.4 mg/dL (2.5-4.9)
[2019-01-19 12:00] VITALS: BP 113/52
[2019-01-19 12:20] LABS: BG BASE EXCESS 0.3 mmol/L (-2.0-2.0); BG CARBOXYHEMOGLOBIN 0.8 % (0.5-1.5); BG DEOXYHEMOGLOBIN 4.1 % (0.0-5.0); BG FRACTION INSPIRED OXYGEN 21; BG HCO3 ACT 24.8 mmol/L (22.0-26.0); BG METHEMOGLOBIN 0.4 % (0.0-1.5); BG OXYGEN SATURATION 95.9 % (92.0-98.5); BG OXYHEMOGLOBIN 94.7 % (94.0-97.0); BG PCO2 39.1 mmHg (35.0-45.0); BG PO2 84.8 mmHg (75.0-100.0); BG SAMPLE SITE RIGHT RADIAL; BG TOTAL HEMOGLOBIN 8.6 g/dL (12.0-18.0); BG VENT MODE ROOM AIR
[2019-01-19] MEDS: PIPERACILLIN/TAZOBACTAM 3.375 G in DEXT 5% WATER 100 ML IV SCH ×2 (14:28→20:45)
[2019-01-19 16:00] VITALS: BP 125/64
[2019-01-19] MEDS ORDERED: HYDRALAZINE 20MG/ML VIAL IV PRN (16:30)
[2019-01-19] MEDS ORDERED: DIPHENHYDRAMINE 50MG/ML VIAL IV PRN (16:30)
[2019-01-19] MEDS ORDERED: LACTULOSE 20G/30ML UDC PO PRN (16:30)
[2019-01-19] MEDS: HYDROCODONE/ACETAMINOPHEN 5/325MG TABLET PO PRN (17:23)
[2019-01-19] MEDS: VANCOMYCIN 1 G PREMIX 200 ML IV SCH (19:11)
[2019-01-19 20:00] VITALS: BP 114/53
[2019-01-20] VITALS: BP 145/60
[2019-01-20] MEDS: PIPERACILLIN/TAZOBACTAM 3.375 G in DEXT 5% WATER 100 ML IV SCH ×4 (03:04→20:43)
[2019-01-20 04:00] VITALS: BP 147/64
[2019-01-20] MEDS: INSULIN LISPRO 100 UNITS/ML SUBCUT SCH ×4 (06:27→20:44)
[2019-01-20] MEDS: BLOOD SUGAR DIAGNOSTIC STRIP TEST SCH ×4 (06:30→20:43)
[2019-01-20 06:47] LABS: CHLORIDE 106 mEq/L (98-107)
[2019-01-20 08:00] VITALS: BP 142/54
[2019-01-20 08:21] LABS: BASOPHILS % 0.7 % (0.0-2.0); EOSINOPHILS % 1.9 % (0.0-5.0); HEMOGLOBIN. 8.7 g/dL (12.0-16.0); LYMPHOCYTES % 18.8 % (20.0-50.0); MEAN CORPUSCULAR HEMOGLOBIN 29.9 pg (28.0-32.0); MEAN CORPUSCULAR VOLUME 92.6 fL (81.0-99.0); MEAN PLATELET VOLUME 7.3 fl (7.4-10.4); MONOCYTES % 12.6 % (2.0-8.0); PLATELET 393 x1000/uL (130-400); RED BLOOD CELL COUNT 2.92 mill/uL (4.2-5.4); RED CELL DISTRIBUTION WIDTH 15.9 % (11.6-14.6)
[2019-01-20] MEDS: ASPIRIN 81MG EC TABLET PO SCH (08:41)
[2019-01-20] MEDS: CARVEDILOL 6.25 MG TABLET PO SCH ×2 (08:42→17:48)
[2019-01-20] MEDS: AMLODIPINE 10MG TABLET PO SCH (08:42)
[2019-01-20] MEDS: ISOSORBIDE MONONITRATE 30MG TABLET SR 24HR PO SCH (08:43)
[2019-01-20] MEDS: SODIUM CHLORIDE 0.45% 1,000 ML IV SCH (08:43)
[2019-01-20 12:00] VITALS: BP 126/54
[2019-01-20] MEDS: VANCOMYCIN 1 G PREMIX 200 ML IV SCH (12:08)
[2019-01-20 16:00] VITALS: BP 128/60
[2019-01-20] MEDS ORDERED: LACTULOSE 20G/30ML UDC PO NR (17:15)
[2019-01-20 20:00] VITALS: BP 143/59
[2019-01-20 20:15] LABS: CLARITY URINE CLEAR (CLEAR); COLOR URINE YELLOW (YELLOW); KETONES URINE NEGATIVE (NEGATIVE); LEUKOCYTE ESTERASE URINE NEGATIVE (NEGATIVE); NITRITE URINE NEGATIVE (NEGATIVE); OCCULT BLOOD URINE TRACE (NEGATIVE); PH URINE 5.5 (4.5-8.0); PROTEIN URINE TRACE (NEGATIVE); SPECIFIC GRAVITY URINE 1.022 (1.005-1.030)
[2019-01-20] MEDS: SILVER SULFADIAZINE 1% CREAM 25GM TOP SCH (21:10)
[2019-01-21] VITALS (7 sets, daily range): BP systolic 109–159; BP diastolic 46–89
[2019-01-21] MEDS: HYDROCODONE/ACETAMINOPHEN 5/325MG TABLET PO PRN (00:38)
[2019-01-21] MEDS: SODIUM CHLORIDE 0.45% 1,000 ML IV SCH ×2 (01:45→15:25)
[2019-01-21] MEDS: PIPERACILLIN/TAZOBACTAM 3.375 G in DEXT 5% WATER 100 ML IV SCH ×4 (01:45→20:09)
[2019-01-21] MEDS: VANCOMYCIN 1 G PREMIX 200 ML IV SCH (05:45)
[2019-01-21] MEDS: BLOOD SUGAR DIAGNOSTIC STRIP TEST SCH ×3 (05:55→17:41)
[2019-01-21] MEDS: INSULIN LISPRO 100 UNITS/ML SUBCUT SCH ×3 (06:20→17:52)
[2019-01-21 06:22] LABS: CHLORIDE 106 mEq/L (98-107)
[2019-01-21 06:27] LABS: BASOPHILS % 0.6 % (0.0-2.0); EOSINOPHILS % 2.3 % (0.0-5.0); HEMATOCRIT. 24.9 % (36.0-48.0); HEMOGLOBIN. 8.1 g/dL (12.0-16.0); LYMPHOCYTES % 21.1 % (20.0-50.0); MEAN CORPUSCULAR HEMOGLOBIN 30.1 pg (28.0-32.0); MEAN CORPUSCULAR VOLUME 92.1 fL (81.0-99.0); MEAN PLATELET VOLUME 7.2 fl (7.4-10.4); PLATELET 396 x1000/uL (130-400)
[2019-01-21 06:38] LABS: VANCOMYCIN TROUGH 11.6 ug/mL (5.0-10.0)
[2019-01-21] MEDS: ISOSORBIDE MONONITRATE 30MG TABLET SR 24HR PO SCH (08:56)
[2019-01-21] MEDS: CARVEDILOL 6.25 MG TABLET PO SCH ×2 (08:56→17:51)
[2019-01-21] MEDS: AMLODIPINE 10MG TABLET PO SCH (08:57)
[2019-01-21] MEDS: ASPIRIN 81MG EC TABLET PO SCH (08:57)
[2019-01-21] MEDS: SILVER SULFADIAZINE 1% CREAM 25GM TOP SCH (09:10)
[2019-01-21] MEDS ORDERED: SILV20CR13 TP (16:51)
[2019-01-21] MEDS ORDERED: SULF1TAB48 MT (16:51)
[2019-01-21] MEDS ORDERED: LEVO500T2 MT (16:51)
[2019-01-21] MEDS ORDERED: VANCOMYCIN 1250MG in DEXTROSE 5% WATER 250ML IV SCH (22:00)
== END 2019-01-21 21:18 | disposition home health service (06) | DRG 871 ==
LOC: ER 08:08 → 5WST 12:16 → EDBEDREQSVC 12:19 → EDBEDREQ 12:19 → ENRESERV 15:44
PROVIDERS: ADMIT Internal Medicine; ATTEND Internal Medicine
DX: A41.9 Sepsis, unspecified organism (principal); G93.41 Metabolic encephalopathy; L03.116 Cellulitis of left lower limb; I50.30 Unspecified diastolic (congestive) heart failure; N17.9 Acute kidney failure, unspecified; L03.115 Cellulitis of right lower limb; N39.0 Urinary tract infection, site not specified; E66.2 Morbid (severe) obesity with alveolar hypoventilation; Z68.42 Body mass index [BMI] 45.0-49.9, adult; I27.20 Pulmonary hypertension, unspecified; I89.0 Lymphedema, not elsewhere classified; K59.00 Constipation, unspecified; D64.9 Anemia, unspecified; E11.40 Type 2 diabetes mellitus with diabetic neuropathy, unspecified; E78.5 Hyperlipidemia, unspecified; E86.0 Dehydration; I11.0 Hypertensive heart disease with heart failure; Z91.010 Allergy to peanuts; Z79.899 Other long term (current) drug therapy; Z79.82 Long term (current) use of aspirin
CPT/HCPCS: 36415; 36600; 71045; 74018; 80048; 80202; 81003; 82140; 82375; 82805; 82962; 83036; 83605; 83735; 84100; 84145; 84484; 87070; 87077; 87186; 93005; 93306; 93970; 96365; 96366; 96368; 97161; 97530; 99285; A6261; C1893; J1815; J2543; J3370; J7060

== ENCOUNTER 2020-09-01 15:06 | Inpatient (IN) | payer MEDICARE, MEDICAID ==
[~2020-09-01] VITALS: Ht 172.7 cm; Wt 121.6 kg
[~2020-09-01 15:06] MED LIST changes: -ACET-2853 PO; +ACET650T37 PO; -ASPI-1393 PO; +ASPI-1497 PO; -GABA-531 PO; +GABA-532 PO; -ISOS30TA6 PO; +ISOS30TA91 PO; +LEVO500T2 MT; +SILV20CR13 TP; +SULF1TAB48 MT
[2020-09-01] MEDS ORDERED: SODIUM CHLORIDE 0.9% 1000ML BAG (SEPSIS BOLUS) IV ONE (16:30)
[2020-09-01 17:05] LABS: CHLORIDE 111 mEq/L (98-107)
[2020-09-01 17:06] LABS: PROTHROMBIN TIME 10.9 sec (9.6-11.0)
[2020-09-01 17:07] LABS: BASOPHILS % 0.3 % (0.0-2.0); EOSINOPHILS % 1.2 % (0.0-5.0); HEMATOCRIT. 24.4 % (36.0-48.0); HEMOGLOBIN. 7.9 g/dL (12.0-16.0); LYMPHOCYTES % 11.2 % (20.0-50.0); MEAN CORPUSCULAR HEMOGLOBIN 28.8 pg (28.0-32.0); MEAN CORPUSCULAR VOLUME 89.4 fL (81.0-99.0); MEAN PLATELET VOLUME 7.3 fl (7.4-10.4); MONOCYTES % 11.2 % (2.0-8.0); NEUTROPHILS % 76.1 % (40.0-76.0); PLATELET 476 x1000/uL (130-400); RED BLOOD CELL COUNT 2.73 mill/uL (4.2-5.4); RED CELL DISTRIBUTION WIDTH 17.7 % (11.6-14.6)
[2020-09-01] MEDS ORDERED: VANCOMYCIN 1 G PREMIX 200 ML IV NR (18:00)
[2020-09-01] MEDS ORDERED: CEFTRIAXONE 1 G PREMIX 50 ML IV NR (18:00)
[2020-09-01 21:49] LABS: CLARITY URINE CLEAR (CLEAR); COLOR URINE YELLOW (YELLOW); KETONES URINE NEGATIVE (NEGATIVE); LEUKOCYTE ESTERASE URINE NEGATIVE (NEGATIVE); NITRITE URINE NEGATIVE (NEGATIVE); OCCULT BLOOD URINE NEGATIVE (NEGATIVE); PH URINE 5.5 (4.5-8.0); PROTEIN URINE 1+ (NEGATIVE); SPECIFIC GRAVITY URINE 1.013 (1.005-1.030)
[2020-09-02] MEDS ORDERED: LABETALOL HCL 20MG/4ML CARPUJECT IV ONE (00:30)
[2020-09-02] MEDS ORDERED: LABETALOL 5MG/ML SYR 20 MG/4 ML SYRINGE IV NR (01:00)
[2020-09-02] MEDS ORDERED: ACETAMINOPHEN 650MG SUPP PR ONE (01:15)
[2020-09-02] MEDS ORDERED: IBUPROFEN 100MG/5ML UDC PO PRN (04:00)
[2020-09-02] MEDS: HYDRALAZINE 20MG/ML VIAL IV PRN ×2 (05:55→10:43)
[2020-09-02] MEDS ORDERED: MORPHINE SULFATE 2 MG/ML CPJ (NOT FOR IM USE) IV SCH (08:30)
[2020-09-02] MEDS ORDERED: HYDRALAZINE 20MG/ML VIAL IV SCH (08:30)
[2020-09-02] MEDS: ACETAMINOPHEN 325MG TABLET PO PRN (10:43)
[2020-09-02] MEDS ORDERED: ONDANSETRON HCL 4MG/2ML INJ IV PRN (10:45)
[2020-09-02 10:55] LABS: BASOPHILS % 0.6 % (0.0-2.0); EOSINOPHILS % 0.3 % (0.0-5.0); HEMATOCRIT. 26.7 % (36.0-48.0); HEMOGLOBIN. 8.7 g/dL (12.0-16.0); LYMPHOCYTES % 7.8 % (20.0-50.0); MEAN CORPUSCULAR HEMOGLOBIN 29.2 pg (28.0-32.0); MEAN CORPUSCULAR VOLUME 89.5 fL (81.0-99.0); MONOCYTES % 7.5 % (2.0-8.0); NEUTROPHILS % 83.8 % (40.0-76.0); PLATELET 556 x1000/uL (130-400); RED BLOOD CELL COUNT 2.98 mill/uL (4.2-5.4); RED CELL DISTRIBUTION WIDTH 17.5 % (11.6-14.6)
[2020-09-02] MEDS ORDERED: DEXTROSE 50% WATER 50ML SYRINGE IV PRN (11:00)
[2020-09-02] MEDS ORDERED: CLONIDINE 0.1MG TABLET PO PRN (11:00)
[2020-09-02 11:02] LABS: CHLORIDE 114 mEq/L (98-107)
[2020-09-02 11:30] VITALS: BP 167/56
[2020-09-02 12:00] VITALS: BP 167/56
[2020-09-02] MEDS ORDERED: PIPERACILLIN/TAZOBACTAM 3.375 G/VIAL IV SCH (12:15)
[2020-09-02] MEDS: BLOOD SUGAR DIAGNOSTIC STRIP TEST SCH ×3 (12:22→21:00)
[2020-09-02] MEDS ORDERED: METO-539 PO (12:43)
[2020-09-02] MEDS ORDERED: CLON0.1T PO (12:43)
[2020-09-02] MEDS ORDERED: ATOR40TA70 MT (12:43)
[2020-09-02] MEDS: TRAMADOL 50MG TABLET PO PRN (12:50)
[2020-09-02] MEDS: INSULIN LISPRO 100 UNITS/ML SUBCUT SCH ×3 (12:51→21:42)
[2020-09-02] MEDS: AMLODIPINE 10MG TABLET PO SCH (12:51)
[2020-09-02] MEDS ORDERED: VANCOMYCIN 1250MG in DEXTROSE 5% WATER 250ML IV SCH (13:00)
[2020-09-02] MEDS ORDERED: VANCOMYCIN 2,000 MG in DEXT 5% WATER 500 ML IV NR (13:00)
[2020-09-02] MEDS: PIPERACILLIN/TAZOBACTAM 3.375G in DEXT 5% WATER 50ML IV SCH ×2 (14:40→18:07)
[2020-09-02 16:00] VITALS: BP 160/35
[2020-09-02 20:00] VITALS: BP 153/66
[2020-09-02] MEDS: CARVEDILOL 6.25 MG TABLET PO SCH (21:38)
[2020-09-03] VITALS: BP 167/68
[2020-09-03] MEDS: PIPERACILLIN/TAZOBACTAM 3.375G in DEXT 5% WATER 50ML IV SCH ×3 (00:23→15:21)
[2020-09-03] MEDS: TRAMADOL 50MG TABLET PO PRN ×3 (02:42→18:15)
[2020-09-03 04:00] VITALS: BP 178/71
[2020-09-03] MEDS: BLOOD SUGAR DIAGNOSTIC STRIP TEST SCH ×4 (06:32→21:35)
[2020-09-03 06:34] LABS: CHLORIDE 119 mEq/L (98-107)
[2020-09-03] MEDS: INSULIN LISPRO 100 UNITS/ML SUBCUT SCH ×4 (06:35→21:37)
[2020-09-03 06:50] LABS: HEMATOCRIT. 29.5 % (36.0-48.0); MEAN CORPUSCULAR HEMOGLOBIN 27.9 pg (28.0-32.0); MEAN CORPUSCULAR VOLUME 91.6 fL (81.0-99.0); MEAN PLATELET VOLUME 7.6 fl (7.4-10.4); PLATELET 477 x1000/uL (130-400); RED BLOOD CELL COUNT 3.22 mill/uL (4.2-5.4)
[2020-09-03 08:00] VITALS: BP 140/86
[2020-09-03] MEDS: AMLODIPINE 10MG TABLET PO SCH (09:48)
[2020-09-03] MEDS: CARVEDILOL 6.25 MG TABLET PO SCH ×2 (09:48→21:34)
[2020-09-03 12:00] VITALS: BP 168/89
[2020-09-03 12:26] LABS: PLATELET ESTIMATE INCREASED
[2020-09-03 16:00] VITALS: BP 188/76
[2020-09-03] MEDS: HYDRALAZINE 20MG/ML VIAL IV PRN (16:12)
[2020-09-03] MEDS ORDERED: NALOXONE HCL 0.4MG/ML VIAL IV PRN (19:15)
[2020-09-03 20:00] VITALS: BP 203/83
[2020-09-03] MEDS: HEPARIN 5000 UNITS/ML VIAL SUBCUT SCH (21:35)
[2020-09-03] MEDS: PIPERACILLIN/TAZOBACTAM 3.375 G in DEXTROSE 5% WATER 50 ML IV SCH (21:39)
[2020-09-04] VITALS (7 sets, daily range): BP systolic 124–182; BP diastolic 58–76
[2020-09-04] MEDS: HYDRALAZINE 20MG/ML VIAL IV SCH ×5 (00:33→23:53)
[2020-09-04] MEDS: HYDRALAZINE 20MG/ML VIAL IV PRN (03:31)
[2020-09-04] MEDS: PIPERACILLIN/TAZOBACTAM 3.375 G in DEXTROSE 5% WATER 50 ML IV SCH ×4 (05:18→22:26)
[2020-09-04 06:06] LABS: BASOPHILS % 0.2 % (0.0-2.0); CHLORIDE 118 mEq/L (98-107); EOSINOPHILS % 0.3 % (0.0-5.0); HEMATOCRIT. 26.1 % (36.0-48.0); HEMOGLOBIN. 8.4 g/dL (12.0-16.0); LYMPHOCYTES % 7.2 % (20.0-50.0); MEAN CORPUSCULAR VOLUME 89.5 fL (81.0-99.0); MEAN PLATELET VOLUME 7.4 fl (7.4-10.4); MONOCYTES % 8.4 % (2.0-8.0); NEUTROPHILS % 83.9 % (40.0-76.0); PLATELET 565 x1000/uL (130-400); RED BLOOD CELL COUNT 2.91 mill/uL (4.2-5.4); RED CELL DISTRIBUTION WIDTH 17.2 % (11.6-14.6)
[2020-09-04] MEDS: BLOOD SUGAR DIAGNOSTIC STRIP TEST SCH ×4 (06:58→21:39)
[2020-09-04] MEDS: INSULIN LISPRO 100 UNITS/ML SUBCUT SCH ×4 (06:59→21:42)
[2020-09-04] MEDS: ASPIRIN 81MG EC TABLET PO SCH (08:33)
[2020-09-04] MEDS: CARVEDILOL 6.25 MG TABLET PO SCH ×2 (08:33→21:39)
[2020-09-04] MEDS: AMLODIPINE 10MG TABLET PO SCH (08:33)
[2020-09-04] MEDS: HEPARIN 5000 UNITS/ML VIAL SUBCUT SCH ×2 (08:34→21:00)
[2020-09-04] MEDS ORDERED: POTASSIUM CHLORIDE 20MEQ TABLET SR PO NR (13:45)
[2020-09-05] VITALS (8 sets, daily range): BP systolic 150–197; BP diastolic 59–76
[2020-09-05] MEDS: TRAMADOL 50MG TABLET PO PRN ×2 (02:33→21:13)
[2020-09-05] MEDS: PIPERACILLIN/TAZOBACTAM 3.375 G in DEXTROSE 5% WATER 50 ML IV SCH ×4 (04:14→23:20)
[2020-09-05] MEDS: BLOOD SUGAR DIAGNOSTIC STRIP TEST SCH ×4 (05:46→21:20)
[2020-09-05] MEDS: HYDRALAZINE 20MG/ML VIAL IV SCH ×3 (06:25→17:44)
[2020-09-05] MEDS: INSULIN LISPRO 100 UNITS/ML SUBCUT SCH ×4 (06:32→21:00)
[2020-09-05 07:06] LABS: BASOPHILS % 0.4 % (0.0-2.0); EOSINOPHILS % 0.3 % (0.0-5.0); HEMATOCRIT. 25.2 % (36.0-48.0); HEMOGLOBIN. 8.2 g/dL (12.0-16.0); LYMPHOCYTES % 12.9 % (20.0-50.0); MEAN CORPUSCULAR HEMOGLOBIN 28.6 pg (28.0-32.0); MEAN CORPUSCULAR VOLUME 88.1 fL (81.0-99.0); MEAN PLATELET VOLUME 7.5 fl (7.4-10.4); MONOCYTES % 8.7 % (2.0-8.0); NEUTROPHILS % 77.7 % (40.0-76.0); PLATELET 586 x1000/uL (130-400); RED BLOOD CELL COUNT 2.86 mill/uL (4.2-5.4); RED CELL DISTRIBUTION WIDTH 17.5 % (11.6-14.6)
[2020-09-05 07:18] LABS: CHLORIDE 121 mEq/L (98-107)
[2020-09-05 07:48] LABS: VITAMIN B12 SERUM 1233 pg/mL (211-911)
[2020-09-05] MEDS: CARVEDILOL 6.25 MG TABLET PO SCH ×2 (09:00→21:33)
[2020-09-05] MEDS: AMLODIPINE 10MG TABLET PO SCH (09:00)
[2020-09-05] MEDS ORDERED: LIDOCAINE HCL 1% 20ML VIAL (Pyxis) INJ ONE (09:14)
[2020-09-05] MEDS ORDERED: ACETAMINOPHEN 650MG SUPP PR PRN (12:30)
[2020-09-05] MEDS: HEPARIN 5000 UNITS/ML VIAL SUBCUT SCH ×2 (12:40→21:34)
[2020-09-05] MEDS: ASPIRIN 81MG EC TABLET PO SCH (12:43)
[2020-09-05] MEDS ORDERED: IBUPROFEN 400MG TABLET PO PRN (15:00)
[2020-09-05] MEDS: MORPHINE SULFATE 2 MG/ML CPJ (NOT FOR IM USE) IV PRN (15:57)
[2020-09-06] VITALS: BP 170/69
[2020-09-06] MEDS: HYDRALAZINE 20MG/ML VIAL IV SCH ×4 (00:11→17:31)
[2020-09-06] MEDS: MORPHINE SULFATE 2 MG/ML CPJ (NOT FOR IM USE) IV PRN ×3 (00:15→22:49)
[2020-09-06] MEDS: PIPERACILLIN/TAZOBACTAM 3.375 G in DEXTROSE 5% WATER 50 ML IV SCH ×4 (03:20→21:24)
[2020-09-06 04:00] VITALS: BP 161/63
[2020-09-06] MEDS: BLOOD SUGAR DIAGNOSTIC STRIP TEST SCH ×3 (07:11→16:57)
[2020-09-06 08:00] VITALS: BP 160/63
[2020-09-06] MEDS: DEXTROSE 5% WATER 1,000 ML IV SCH ×2 (08:50→22:29)
[2020-09-06] MEDS: CARVEDILOL 6.25 MG TABLET PO SCH ×3 (09:00→22:29)
[2020-09-06] MEDS: AMLODIPINE 10MG TABLET PO SCH (09:00)
[2020-09-06] MEDS: ASPIRIN 81MG EC TABLET PO SCH (09:00)
[2020-09-06] MEDS: INSULIN LISPRO 100 UNITS/ML SUBCUT SCH ×3 (09:04→16:58)
[2020-09-06] MEDS: HEPARIN 5000 UNITS/ML VIAL SUBCUT SCH ×2 (09:11→21:24)
[2020-09-06 09:48] LABS: BASOPHILS % 0.5 % (0.0-2.0); EOSINOPHILS % 0.3 % (0.0-5.0); HEMATOCRIT. 26.7 % (36.0-48.0); HEMOGLOBIN. 8.3 g/dL (12.0-16.0); LYMPHOCYTES % 14.3 % (20.0-50.0); MEAN CORPUSCULAR VOLUME 89.5 fL (81.0-99.0); MEAN PLATELET VOLUME 7.6 fl (7.4-10.4); MONOCYTES % 7.3 % (2.0-8.0); NEUTROPHILS % 77.6 % (40.0-76.0); PLATELET 584 x1000/uL (130-400); RED BLOOD CELL COUNT 2.98 mill/uL (4.2-5.4); RED CELL DISTRIBUTION WIDTH 17.4 % (11.6-14.6)
[2020-09-06 10:05] LABS: CHLORIDE 124 mEq/L (98-107)
[2020-09-06 12:00] VITALS: BP 159/66
[2020-09-06 16:00] VITALS: BP 168/74
[2020-09-06 20:00] VITALS: BP 145/62
[2020-09-07] VITALS: BP 127/47
[2020-09-07] MEDS: BLOOD SUGAR DIAGNOSTIC STRIP TEST SCH ×4 (00:01→17:26)
[2020-09-07] MEDS: HYDRALAZINE 20MG/ML VIAL IV SCH ×3 (00:02→12:55)
[2020-09-07] MEDS: TRAMADOL 50MG TABLET PO PRN (00:53)
[2020-09-07] MEDS: PIPERACILLIN/TAZOBACTAM 3.375 G in DEXTROSE 5% WATER 50 ML IV SCH ×3 (03:27→17:23)
[2020-09-07 04:00] VITALS: BP 147/55
[2020-09-07] MEDS: MORPHINE SULFATE 2 MG/ML CPJ (NOT FOR IM USE) IV PRN ×2 (05:14→18:09)
[2020-09-07] MEDS: INSULIN LISPRO 100 UNITS/ML SUBCUT SCH ×4 (06:44→17:26)
[2020-09-07 06:51] LABS: BASOPHILS % 0.7 % (0.0-2.0); CHLORIDE 123 mEq/L (98-107); EOSINOPHILS % 0.8 % (0.0-5.0); HEMATOCRIT. 26.4 % (36.0-48.0); HEMOGLOBIN. 8.3 g/dL (12.0-16.0); LYMPHOCYTES % 12.6 % (20.0-50.0); MEAN CORPUSCULAR HEMOGLOBIN 28.5 pg (28.0-32.0); MEAN CORPUSCULAR VOLUME 90.4 fL (81.0-99.0); MEAN PLATELET VOLUME 7.3 fl (7.4-10.4); MONOCYTES % 9.2 % (2.0-8.0); NEUTROPHILS % 76.7 % (40.0-76.0); PLATELET 544 x1000/uL (130-400); RED BLOOD CELL COUNT 2.92 mill/uL (4.2-5.4); RED CELL DISTRIBUTION WIDTH 17.6 % (11.6-14.6)
[2020-09-07 08:00] VITALS: BP 139/58
[2020-09-07] MEDS: CARVEDILOL 6.25 MG TABLET PO SCH ×2 (09:25→21:28)
[2020-09-07] MEDS: THIAMINE HCL 100MG TABLET NG SCH (09:25)
[2020-09-07] MEDS: ZINC SULFATE 220 MG ( 50 ) CAPSULE NG SCH (09:25)
[2020-09-07] MEDS: ASPIRIN 81MG EC TABLET PO SCH (09:25)
[2020-09-07] MEDS: ASCORBIC ACID 500 MG TABLET NG SCH (09:25)
[2020-09-07] MEDS: AMLODIPINE 10MG TABLET PO SCH (09:26)
[2020-09-07] MEDS: HEPARIN 5000 UNITS/ML VIAL SUBCUT SCH (09:26)
[2020-09-07] MEDS: FOLIC ACID 1MG TABLET NG SCH (09:26)
[2020-09-07 12:00] VITALS: BP 149/56
[2020-09-07] MEDS: DOCUSATE SODIUM SUGAR FREE 100MG/10ML UDC NG SCH (12:55)
[2020-09-07 16:00] VITALS: BP 139/44
[2020-09-07] MEDS ORDERED: POTASSIUM CHLORIDE 20MEQ TABLET SR PO NR (16:00)
[2020-09-07 16:46] LABS: BG BASE EXCESS 5.1 mmol/L (-2.0-2.0); BG CARBOXYHEMOGLOBIN 0.1 % (0.5-1.5); BG DEOXYHEMOGLOBIN 5.8 % (0.0-5.0); BG FRACTION INSPIRED OXYGEN 21; BG HCO3 ACT 29.2 mmol/L (22.0-26.0); BG METHEMOGLOBIN 0.1 % (0.0-1.5); BG OXYGEN SATURATION 94.2 % (92.0-98.5); BG PCO2 40.9 mmHg (35.0-45.0); BG PH 7.471 (7.350-7.450); BG PO2 72.8 mmHg (75.0-100.0); BG SAMPLE SITE RIGHT RADIAL; BG TOTAL HEMOGLOBIN 9.6 g/dL (12.0-18.0); BG VENT MODE ROOM AIR
[2020-09-07 20:00] VITALS: BP 137/59
[2020-09-07] MEDS: HYDRALAZINE HCL 50MG TABLET PO SCH (21:28)
[2020-09-08] VITALS: BP 120/43
[2020-09-08] MEDS: PIPERACILLIN/TAZOBACTAM 3.375 G in DEXTROSE 5% WATER 50 ML IV SCH ×5 (00:05→23:02)
[2020-09-08] MEDS: DEXTROSE 5% WATER 1,000 ML IV SCH ×2 (00:06→18:39)
[2020-09-08] MEDS: BLOOD SUGAR DIAGNOSTIC STRIP TEST SCH ×5 (00:16→23:04)
[2020-09-08] MEDS: INSULIN LISPRO 100 UNITS/ML SUBCUT SCH ×5 (00:22→23:04)
[2020-09-08] MEDS: MORPHINE SULFATE 2 MG/ML CPJ (NOT FOR IM USE) IV PRN ×2 (04:27→13:05)
[2020-09-08] MEDS: SILVER SULFADIAZINE 1% CREAM 25GM TOP SCH (05:08)
[2020-09-08] MEDS: HYDRALAZINE HCL 50MG TABLET PO SCH ×3 (05:09→22:10)
[2020-09-08 08:00] VITALS: BP 152/80
[2020-09-08 08:11] LABS: HEMATOCRIT. 27.3 % (36.0-48.0); HEMOGLOBIN. 8.4 g/dL (12.0-16.0); MEAN CORPUSCULAR HEMOGLOBIN 28.2 pg (28.0-32.0); MEAN CORPUSCULAR VOLUME 91.7 fL (81.0-99.0); MEAN PLATELET VOLUME 7.8 fl (7.4-10.4); PLATELET 560 x1000/uL (130-400); RED BLOOD CELL COUNT 2.98 mill/uL (4.2-5.4); RED CELL DISTRIBUTION WIDTH 18.1 % (11.6-14.6)
[2020-09-08] MEDS: POLYETHYLENE GLYCOL 3350 (17GM) 1 DOSE PACK NG SCH (09:56)
[2020-09-08] MEDS: THIAMINE HCL 100MG TABLET NG SCH (09:57)
[2020-09-08] MEDS: ASPIRIN 81MG EC TABLET PO SCH (09:57)
[2020-09-08] MEDS: AMLODIPINE 10MG TABLET PO SCH (09:57)
[2020-09-08] MEDS: ASCORBIC ACID 500 MG TABLET NG SCH (09:57)
[2020-09-08] MEDS: ZINC SULFATE 220 MG ( 50 ) CAPSULE NG SCH (09:57)
[2020-09-08] MEDS: FOLIC ACID 1MG TABLET NG SCH (09:57)
[2020-09-08] MEDS: CARVEDILOL 6.25 MG TABLET PO SCH ×2 (09:57→20:43)
[2020-09-08] MEDS: DOCUSATE SODIUM SUGAR FREE 100MG/10ML UDC NG SCH (09:57)
[2020-09-08 12:00] VITALS: BP 146/49
[2020-09-08 16:00] VITALS: BP 129/63
[2020-09-08 20:00] VITALS: BP 125/53
[2020-09-08 20:53] LABS: PLATELET ESTIMATE INCREASED
[2020-09-09] VITALS: BP 142/42
[2020-09-09] MEDS: MORPHINE SULFATE 2 MG/ML CPJ (NOT FOR IM USE) IV PRN ×3 (00:03→17:13)
[2020-09-09 04:00] VITALS: BP 143/52
[2020-09-09] MEDS: HYDRALAZINE HCL 50MG TABLET PO SCH ×3 (05:00→22:00)
[2020-09-09] MEDS: PIPERACILLIN/TAZOBACTAM 3.375 G in DEXTROSE 5% WATER 50 ML IV SCH ×4 (05:00→23:01)
[2020-09-09] MEDS: BLOOD SUGAR DIAGNOSTIC STRIP TEST SCH ×4 (05:01→23:04)
[2020-09-09] MEDS: INSULIN LISPRO 100 UNITS/ML SUBCUT SCH ×4 (05:01→23:04)
[2020-09-09 08:00] VITALS: BP 106/61
[2020-09-09 08:07] LABS: BASOPHILS % 0.3 % (0.0-2.0); EOSINOPHILS % 1.1 % (0.0-5.0); HEMATOCRIT. 24.9 % (36.0-48.0); HEMOGLOBIN. 7.7 g/dL (12.0-16.0); LYMPHOCYTES % 21.8 % (20.0-50.0); MEAN CORPUSCULAR HEMOGLOBIN 28.4 pg (28.0-32.0); MEAN CORPUSCULAR VOLUME 92.4 fL (81.0-99.0); MEAN PLATELET VOLUME 7.8 fl (7.4-10.4); NEUTROPHILS % 68.8 % (40.0-76.0); PLATELET 465 x1000/uL (130-400)
[2020-09-09 08:17] LABS: CHLORIDE 119 mEq/L (98-107)
[2020-09-09] MEDS: SILVER SULFADIAZINE 1% CREAM 25GM TOP SCH (09:00)
[2020-09-09] MEDS: CARVEDILOL 6.25 MG TABLET PO SCH ×2 (09:00→21:00)
[2020-09-09] MEDS: AMLODIPINE 10MG TABLET PO SCH (09:00)
[2020-09-09] MEDS: POLYETHYLENE GLYCOL 3350 (17GM) 1 DOSE PACK NG SCH (09:58)
[2020-09-09] MEDS: DOCUSATE SODIUM SUGAR FREE 100MG/10ML UDC NG SCH (09:58)
[2020-09-09] MEDS: ZINC SULFATE 220 MG ( 50 ) CAPSULE NG SCH (09:59)
[2020-09-09] MEDS: THIAMINE HCL 100MG TABLET NG SCH (09:59)
[2020-09-09] MEDS: FOLIC ACID 1MG TABLET NG SCH (09:59)
[2020-09-09] MEDS: ASCORBIC ACID 500 MG TABLET NG SCH (09:59)
[2020-09-09] MEDS: ASPIRIN 81MG EC TABLET PO SCH (09:59)
[2020-09-09] MEDS: SILVER SULFADIAZINE 1% CREAM 25GM TOP PRN (11:49)
[2020-09-09 12:00] VITALS: BP 102/54
[2020-09-09] MEDS: DEXTROSE 5% WATER 1,000 ML IV SCH ×2 (13:50→23:02)
[2020-09-09 16:00] VITALS: BP 166/69
[2020-09-09] MEDS: HYDRALAZINE 20MG/ML VIAL IV PRN ×2 (17:13→22:20)
[2020-09-09 18:17] LABS: HEMATOCRIT 23.8 % (36.0-48.0); HEMOGLOBIN 7.2 g/dL (12.0-16.0)
[2020-09-09 20:00] VITALS: BP 163/77
[2020-09-09] MEDS ORDERED: NALOXONE HCL 0.4MG/ML VIAL IV PRN (22:30)
[2020-09-10] VITALS (8 sets, daily range): BP systolic 99–174; BP diastolic 39–101
[2020-09-10] MEDS: MORPHINE SULFATE 2 MG/ML CPJ (NOT FOR IM USE) IV PRN ×3 (02:31→17:45)
[2020-09-10] MEDS: HYDRALAZINE 20MG/ML VIAL IV PRN (04:12)
[2020-09-10] MEDS: HYDRALAZINE HCL 50MG TABLET PO SCH ×3 (05:04→22:31)
[2020-09-10] MEDS: BLOOD SUGAR DIAGNOSTIC STRIP TEST SCH ×3 (05:04→18:48)
[2020-09-10] MEDS: PIPERACILLIN/TAZOBACTAM 3.375 G in DEXTROSE 5% WATER 50 ML IV SCH ×3 (05:04→18:56)
[2020-09-10] MEDS: INSULIN LISPRO 100 UNITS/ML SUBCUT SCH ×3 (05:05→18:55)
[2020-09-10 07:22] LABS: BASOPHILS % 0.7 % (0.0-2.0); HEMATOCRIT. 27.1 % (36.0-48.0); HEMOGLOBIN. 8.4 g/dL (12.0-16.0); LYMPHOCYTES % 22.2 % (20.0-50.0); MEAN CORPUSCULAR VOLUME 89.9 fL (81.0-99.0); MEAN PLATELET VOLUME 7.9 fl (7.4-10.4); MONOCYTES % 8.5 % (2.0-8.0); NEUTROPHILS % 67.6 % (40.0-76.0); PLATELET 477 x1000/uL (130-400); RED BLOOD CELL COUNT 3.01 mill/uL (4.2-5.4); RED CELL DISTRIBUTION WIDTH 17.6 % (11.6-14.6)
[2020-09-10 07:25] LABS: CHLORIDE 114 mEq/L (98-107)
[2020-09-10] MEDS: POLYETHYLENE GLYCOL 3350 (17GM) 1 DOSE PACK NG SCH (08:00)
[2020-09-10] MEDS: DOCUSATE SODIUM SUGAR FREE 100MG/10ML UDC NG SCH (08:00)
[2020-09-10] MEDS: CARVEDILOL 6.25 MG TABLET PO SCH ×2 (08:30→20:39)
[2020-09-10] MEDS: ZINC SULFATE 220 MG ( 50 ) CAPSULE NG SCH (08:30)
[2020-09-10] MEDS: SILVER SULFADIAZINE 1% CREAM 25GM TOP SCH (08:31)
[2020-09-10] MEDS: ASPIRIN 81MG EC TABLET PO SCH (08:31)
[2020-09-10] MEDS: SILVER SULFADIAZINE 1% CREAM 25GM TOP PRN (08:31)
[2020-09-10] MEDS: AMLODIPINE 10MG TABLET PO SCH (08:31)
[2020-09-10] MEDS: ASCORBIC ACID 500 MG TABLET NG SCH (08:31)
[2020-09-10 10:24] LABS: BG BASE EXCESS 7.8 mmol/L (-2.0-2.0); BG CARBOXYHEMOGLOBIN 1.2 % (0.5-1.5); BG DEOXYHEMOGLOBIN 4.9 % (0.0-5.0); BG FRACTION INSPIRED OXYGEN 21; BG METHEMOGLOBIN 0.2 % (0.0-1.5); BG OXYHEMOGLOBIN 93.7 % (94.0-97.0); BG PCO2 43.6 mmHg (35.0-45.0); BG PH 7.483 (7.350-7.450); BG PO2 76.4 mmHg (75.0-100.0); BG SAMPLE SITE RIGHT RADIAL; BG TOTAL HEMOGLOBIN 7.7 g/dL (12.0-18.0); BG VENT MODE ROOM AIR
[2020-09-10] MEDS: IPRATROPIUM/ALBUTEROL 0.5-3(2.5)MG/3ML NEB HHN SCH (20:36)
[2020-09-10] MEDS: ACETAMINOPHEN 325MG TABLET PO PRN (20:39)
[2020-09-10] MEDS: DEXTROSE 5% WATER 1,000 ML IV SCH (21:49)
[2020-09-11] VITALS (17 sets, daily range): BP systolic 126–156; BP diastolic 53–83
[2020-09-11] MEDS: PIPERACILLIN/TAZOBACTAM 3.375 G in DEXTROSE 5% WATER 50 ML IV SCH ×5 (00:09→23:38)
[2020-09-11] MEDS: INSULIN LISPRO 100 UNITS/ML SUBCUT SCH ×5 (00:11→23:17)
[2020-09-11] MEDS: BLOOD SUGAR DIAGNOSTIC STRIP TEST SCH ×5 (00:21→23:12)
[2020-09-11] MEDS: IPRATROPIUM/ALBUTEROL 0.5-3(2.5)MG/3ML NEB HHN SCH ×4 (01:03→20:07)
[2020-09-11] MEDS: HYDRALAZINE HCL 50MG TABLET PO SCH ×3 (05:39→22:41)
[2020-09-11 06:53] LABS: CHLORIDE 111 mEq/L (98-107)
[2020-09-11 06:54] LABS: BASOPHILS % 0.5 % (0.0-2.0); EOSINOPHILS % 1.7 % (0.0-5.0); HEMOGLOBIN. 7.3 g/dL (12.0-16.0); LYMPHOCYTES % 24.9 % (20.0-50.0); MEAN CORPUSCULAR HEMOGLOBIN 28.5 pg (28.0-32.0); MEAN CORPUSCULAR VOLUME 89.6 fL (81.0-99.0); MEAN PLATELET VOLUME 8.2 fl (7.4-10.4); MONOCYTES % 8.1 % (2.0-8.0); NEUTROPHILS % 64.8 % (40.0-76.0); PLATELET 434 x1000/uL (130-400); RED BLOOD CELL COUNT 2.56 mill/uL (4.2-5.4); RED CELL DISTRIBUTION WIDTH 17.9 % (11.6-14.6)
[2020-09-11] MEDS: DOCUSATE SODIUM SUGAR FREE 100MG/10ML UDC NG SCH (08:23)
[2020-09-11] MEDS: POLYETHYLENE GLYCOL 3350 (17GM) 1 DOSE PACK NG SCH (08:23)
[2020-09-11] MEDS: ASPIRIN 81MG EC TABLET PO SCH (08:23)
[2020-09-11] MEDS: CARVEDILOL 6.25 MG TABLET PO SCH ×2 (08:24→21:22)
[2020-09-11] MEDS: SILVER SULFADIAZINE 1% CREAM 25GM TOP SCH (08:24)
[2020-09-11] MEDS: ASCORBIC ACID 500 MG TABLET NG SCH (08:24)
[2020-09-11] MEDS: AMLODIPINE 10MG TABLET PO SCH (08:24)
[2020-09-11] MEDS: ZINC SULFATE 220 MG ( 50 ) CAPSULE NG SCH (09:28)
[2020-09-11 09:33] LABS: BG BASE EXCESS 7.5 mmol/L (-2.0-2.0); BG CARBOXYHEMOGLOBIN 0.5 % (0.5-1.5); BG DEOXYHEMOGLOBIN 6.3 % (0.0-5.0); BG FRACTION INSPIRED OXYGEN 21; BG HCO3 ACT 31.7 mmol/L (22.0-26.0); BG OXYGEN SATURATION 93.7 % (92.0-98.5); BG OXYHEMOGLOBIN 93.2 % (94.0-97.0); BG PCO2 43.5 mmHg (35.0-45.0); BG PO2 70.7 mmHg (75.0-100.0); BG SAMPLE SITE RIGHT RADIAL; BG TOTAL HEMOGLOBIN 7.9 g/dL (12.0-18.0); BG VENT MODE ROOM AIR
[2020-09-11] MEDS: DEXTROSE 5% WATER 1,000 ML IV SCH (21:22)
[2020-09-12] VITALS (15 sets, daily range): BP systolic 131–163; BP diastolic 56–81
[2020-09-12] MEDS: IPRATROPIUM/ALBUTEROL 0.5-3(2.5)MG/3ML NEB HHN SCH ×4 (01:47→20:56)
[2020-09-12] MEDS: BLOOD SUGAR DIAGNOSTIC STRIP TEST SCH ×4 (05:13→23:19)
[2020-09-12] MEDS: HYDRALAZINE HCL 50MG TABLET PO SCH ×3 (05:18→20:46)
[2020-09-12] MEDS: PIPERACILLIN/TAZOBACTAM 3.375 G in DEXTROSE 5% WATER 50 ML IV SCH ×2 (05:18→11:58)
[2020-09-12] MEDS: INSULIN LISPRO 100 UNITS/ML SUBCUT SCH ×4 (05:19→23:19)
[2020-09-12] MEDS: DOCUSATE SODIUM SUGAR FREE 100MG/10ML UDC NG SCH (09:00)
[2020-09-12] MEDS: POLYETHYLENE GLYCOL 3350 (17GM) 1 DOSE PACK NG SCH (09:00)
[2020-09-12] MEDS: CARVEDILOL 6.25 MG TABLET PO SCH ×2 (09:25→20:46)
[2020-09-12] MEDS: ASCORBIC ACID 500 MG TABLET NG SCH (09:25)
[2020-09-12] MEDS: ZINC SULFATE 220 MG ( 50 ) CAPSULE NG SCH (09:25)
[2020-09-12] MEDS: ASPIRIN 81MG EC TABLET PO SCH (09:25)
[2020-09-12] MEDS: AMLODIPINE 10MG TABLET PO SCH (09:25)
[2020-09-12] MEDS: SILVER SULFADIAZINE 1% CREAM 25GM TOP PRN ×2 (09:27→09:29)
[2020-09-12] MEDS: SILVER SULFADIAZINE 1% CREAM 25GM TOP SCH (09:33)
[2020-09-12] MEDS: ACETAMINOPHEN 325MG TABLET PO PRN (11:58)
[2020-09-12] MEDS: DEXTROSE 5% WATER 1,000 ML IV SCH ×2 (15:44→22:09)
[2020-09-12 16:17] LABS: BASOPHILS % 0.5 % (0.0-2.0); EOSINOPHILS % 1.7 % (0.0-5.0); HEMATOCRIT. 27.8 % (36.0-48.0); HEMOGLOBIN. 9.2 g/dL (12.0-16.0); LYMPHOCYTES % 27.3 % (20.0-50.0); MEAN CORPUSCULAR HEMOGLOBIN 29.4 pg (28.0-32.0); MEAN CORPUSCULAR VOLUME 89.2 fL (81.0-99.0); MEAN PLATELET VOLUME 8.3 fl (7.4-10.4); MONOCYTES % 9.3 % (2.0-8.0); NEUTROPHILS % 61.2 % (40.0-76.0); PLATELET 430 x1000/uL (130-400); RED BLOOD CELL COUNT 3.12 mill/uL (4.2-5.4); RED CELL DISTRIBUTION WIDTH 17.1 % (11.6-14.6)
[2020-09-12 16:50] LABS: CHLORIDE 102 mEq/L (98-107)
[2020-09-12] MEDS: HYDRALAZINE 20MG/ML VIAL IV PRN (17:20)
[2020-09-12] MEDS: MORPHINE SULFATE 2 MG/ML CPJ (NOT FOR IM USE) IV PRN (17:21)
[2020-09-13] VITALS (13 sets, daily range): BP systolic 134–160; BP diastolic 57–84
[2020-09-13] MEDS: IPRATROPIUM/ALBUTEROL 0.5-3(2.5)MG/3ML NEB HHN SCH ×4 (01:17→21:10)
[2020-09-13] MEDS: MORPHINE SULFATE 2 MG/ML CPJ (NOT FOR IM USE) IV PRN ×3 (03:25→23:26)
[2020-09-13] MEDS: HYDRALAZINE HCL 50MG TABLET PO SCH ×3 (05:28→21:06)
[2020-09-13] MEDS: INSULIN LISPRO 100 UNITS/ML SUBCUT SCH ×4 (05:33→23:36)
[2020-09-13] MEDS: BLOOD SUGAR DIAGNOSTIC STRIP TEST SCH ×4 (05:34→23:24)
[2020-09-13] MEDS: ASPIRIN 81MG EC TABLET PO SCH (08:09)
[2020-09-13] MEDS: ZINC SULFATE 220 MG ( 50 ) CAPSULE NG SCH (08:09)
[2020-09-13] MEDS: POLYETHYLENE GLYCOL 3350 (17GM) 1 DOSE PACK NG SCH (08:09)
[2020-09-13] MEDS: AMLODIPINE 10MG TABLET PO SCH (08:10)
[2020-09-13] MEDS: DOCUSATE SODIUM SUGAR FREE 100MG/10ML UDC NG SCH (08:10)
[2020-09-13] MEDS: ASCORBIC ACID 500 MG TABLET NG SCH (08:10)
[2020-09-13] MEDS: CARVEDILOL 6.25 MG TABLET PO SCH ×2 (08:10→21:06)
[2020-09-13] MEDS: SILVER SULFADIAZINE 1% CREAM 25GM TOP PRN (08:11)
[2020-09-13] MEDS: SILVER SULFADIAZINE 1% CREAM 25GM TOP SCH (08:12)
[2020-09-13] MEDS: PIPERACILLIN/TAZOBACTAM 3.375 G in DEXTROSE 5% WATER 50 ML IV SCH ×2 (18:18→23:24)
[2020-09-13] MEDS: HYDRALAZINE 20MG/ML VIAL IV PRN (18:20)
[2020-09-13 18:24] LABS: BASOPHILS % 0.6 % (0.0-2.0); EOSINOPHILS % 1.8 % (0.0-5.0); HEMATOCRIT. 28.4 % (36.0-48.0); HEMOGLOBIN. 9.1 g/dL (12.0-16.0); LYMPHOCYTES % 22.7 % (20.0-50.0); MEAN CORPUSCULAR HEMOGLOBIN 28.5 pg (28.0-32.0); MEAN CORPUSCULAR VOLUME 89.5 fL (81.0-99.0); MEAN PLATELET VOLUME 8.3 fl (7.4-10.4); MONOCYTES % 10.5 % (2.0-8.0); NEUTROPHILS % 64.4 % (40.0-76.0); PLATELET 446 x1000/uL (130-400); RED BLOOD CELL COUNT 3.18 mill/uL (4.2-5.4); RED CELL DISTRIBUTION WIDTH 16.9 % (11.6-14.6)
[2020-09-13 18:55] LABS: CHLORIDE 98 mEq/L (98-107)
[2020-09-13] MEDS: ACETAMINOPHEN 325MG TABLET PO PRN (21:05)
[2020-09-14] VITALS (11 sets, daily range): BP systolic 130–159; BP diastolic 61–81
[2020-09-14] MEDS: IPRATROPIUM/ALBUTEROL 0.5-3(2.5)MG/3ML NEB HHN SCH ×4 (02:30→21:02)
[2020-09-14] MEDS: PIPERACILLIN/TAZOBACTAM 3.375 G in DEXTROSE 5% WATER 50 ML IV SCH ×4 (05:08→21:54)
[2020-09-14] MEDS: HYDRALAZINE HCL 50MG TABLET PO SCH ×3 (05:08→21:53)
[2020-09-14] MEDS: BLOOD SUGAR DIAGNOSTIC STRIP TEST SCH ×3 (05:09→17:50)
[2020-09-14] MEDS: INSULIN LISPRO 100 UNITS/ML SUBCUT SCH ×3 (05:21→17:47)
[2020-09-14 07:08] LABS: BASOPHILS % 0.3 % (0.0-2.0); EOSINOPHILS % 0.9 % (0.0-5.0); HEMATOCRIT. 27.8 % (36.0-48.0); LYMPHOCYTES % 17.1 % (20.0-50.0); MEAN CORPUSCULAR HEMOGLOBIN 28.5 pg (28.0-32.0); MEAN CORPUSCULAR VOLUME 88.4 fL (81.0-99.0); MEAN PLATELET VOLUME 8.5 fl (7.4-10.4); MONOCYTES % 10.7 % (2.0-8.0); PLATELET 440 x1000/uL (130-400); RED BLOOD CELL COUNT 3.14 mill/uL (4.2-5.4); RED CELL DISTRIBUTION WIDTH 17.2 % (11.6-14.6)
[2020-09-14 07:10] LABS: CHLORIDE 97 mEq/L (98-107)
[2020-09-14 07:20] LABS: CREATINE KINASE 43 IU/L (26-192)
[2020-09-14] MEDS: POLYETHYLENE GLYCOL 3350 (17GM) 1 DOSE PACK NG SCH (08:46)
[2020-09-14] MEDS: ASCORBIC ACID 500 MG TABLET NG SCH (08:46)
[2020-09-14] MEDS: ASPIRIN 81MG EC TABLET PO SCH (08:46)
[2020-09-14] MEDS: ZINC SULFATE 220 MG ( 50 ) CAPSULE NG SCH (08:46)
[2020-09-14] MEDS: DOCUSATE SODIUM SUGAR FREE 100MG/10ML UDC NG SCH (08:47)
[2020-09-14] MEDS: CARVEDILOL 6.25 MG TABLET PO SCH ×2 (08:47→21:53)
[2020-09-14] MEDS: AMLODIPINE 10MG TABLET PO SCH (08:48)
[2020-09-14] MEDS: SILVER SULFADIAZINE 1% CREAM 25GM TOP SCH (08:49)
[2020-09-15] VITALS (12 sets, daily range): BP systolic 119–138; BP diastolic 53–90
[2020-09-15] MEDS: BLOOD SUGAR DIAGNOSTIC STRIP TEST SCH ×4 (00:24→18:33)
[2020-09-15] MEDS: INSULIN LISPRO 100 UNITS/ML SUBCUT SCH ×4 (00:32→18:28)
[2020-09-15] MEDS: IPRATROPIUM/ALBUTEROL 0.5-3(2.5)MG/3ML NEB HHN SCH ×4 (02:22→21:01)
[2020-09-15] MEDS: PIPERACILLIN/TAZOBACTAM 3.375 G in DEXTROSE 5% WATER 50 ML IV SCH ×4 (06:26→23:54)
[2020-09-15] MEDS: HYDRALAZINE HCL 50MG TABLET PO SCH ×3 (06:39→21:21)
[2020-09-15 07:33] LABS: BASOPHILS % 0.6 % (0.0-2.0); EOSINOPHILS % 0.7 % (0.0-5.0); HEMATOCRIT. 25.5 % (36.0-48.0); LYMPHOCYTES % 22.4 % (20.0-50.0); MEAN CORPUSCULAR HEMOGLOBIN 27.8 pg (28.0-32.0); MEAN CORPUSCULAR VOLUME 88.5 fL (81.0-99.0); MEAN PLATELET VOLUME 8.8 fl (7.4-10.4); MONOCYTES % 11.3 % (2.0-8.0); PLATELET 437 x1000/uL (130-400); RED BLOOD CELL COUNT 2.88 mill/uL (4.2-5.4); RED CELL DISTRIBUTION WIDTH 17.3 % (11.6-14.6)
[2020-09-15 08:15] LABS: CHLORIDE 97 mEq/L (98-107)
[2020-09-15] MEDS: ZINC SULFATE 220 MG ( 50 ) CAPSULE NG SCH (09:11)
[2020-09-15] MEDS: ASCORBIC ACID 500 MG TABLET NG SCH (09:11)
[2020-09-15] MEDS: ASPIRIN 81MG EC TABLET PO SCH (09:11)
[2020-09-15] MEDS: DOCUSATE SODIUM SUGAR FREE 100MG/10ML UDC NG SCH (09:11)
[2020-09-15] MEDS: POLYETHYLENE GLYCOL 3350 (17GM) 1 DOSE PACK NG SCH (09:11)
[2020-09-15] MEDS: CARVEDILOL 6.25 MG TABLET PO SCH ×2 (09:12→21:21)
[2020-09-15] MEDS: AMLODIPINE 10MG TABLET PO SCH (09:12)
[2020-09-15] MEDS: SILVER SULFADIAZINE 1% CREAM 25GM TOP PRN ×2 (09:13→12:43)
[2020-09-15] MEDS: DEXTROSE 5% WATER 1,000 ML IV SCH (12:43)
[2020-09-15] MEDS: SILVER SULFADIAZINE 1% CREAM 25GM TOP SCH (12:47)
[2020-09-15] MEDS: METOCLOPRAMIDE HCL 10MG/2ML VIAL IV SCH (18:27)
[2020-09-15] MEDS: SODIUM CHLORIDE 0.9% 1,000 ML IV SCH (19:00)
[2020-09-15 19:49] LABS: HEMATOCRIT 25.2 % (36.0-48.0); HEMOGLOBIN 8.1 g/dL (12.0-16.0)
[2020-09-16] VITALS (19 sets, daily range): BP systolic 112–157; BP diastolic 54–97
[2020-09-16] MEDS: METOCLOPRAMIDE HCL 10MG/2ML VIAL IV SCH ×4 (00:37→17:26)
[2020-09-16] MEDS: BLOOD SUGAR DIAGNOSTIC STRIP TEST SCH ×4 (00:43→17:20)
[2020-09-16] MEDS: INSULIN LISPRO 100 UNITS/ML SUBCUT SCH ×4 (00:43→17:20)
[2020-09-16] MEDS: PIPERACILLIN/TAZOBACTAM 3.375 G in DEXTROSE 5% WATER 50 ML IV SCH ×3 (06:32→17:26)
[2020-09-16] MEDS: HYDRALAZINE HCL 50MG TABLET PO SCH ×3 (06:33→22:00)
[2020-09-16] MEDS: ACETAMINOPHEN 325MG TABLET PO PRN (06:33)
[2020-09-16] MEDS: SUCRALFATE 1 G/10 ML UDC PO SCH ×5 (07:30→21:00)
[2020-09-16] MEDS: IPRATROPIUM/ALBUTEROL 0.5-3(2.5)MG/3ML NEB HHN SCH ×4 (08:42→20:11)
[2020-09-16] MEDS: AMLODIPINE 10MG TABLET PO SCH ×2 (09:00→09:10)
[2020-09-16] MEDS ORDERED: PANTOPRAZOLE SODIUM 40 MG/VIAL IV SCH (09:00)
[2020-09-16] MEDS: ASPIRIN 81MG EC TABLET PO SCH ×2 (09:00→09:10)
[2020-09-16] MEDS: ZINC SULFATE 220 MG ( 50 ) CAPSULE NG SCH ×2 (09:00→09:08)
[2020-09-16] MEDS: POLYETHYLENE GLYCOL 3350 (17GM) 1 DOSE PACK NG SCH ×2 (09:00→09:08)
[2020-09-16] MEDS: ASCORBIC ACID 500 MG TABLET NG SCH ×2 (09:00→09:08)
[2020-09-16] MEDS: DOCUSATE SODIUM SUGAR FREE 100MG/10ML UDC NG SCH ×2 (09:00→09:04)
[2020-09-16] MEDS: CARVEDILOL 6.25 MG TABLET PO SCH ×3 (09:00→21:00)
[2020-09-16] MEDS: SODIUM CHLORIDE 0.9% 1,000 ML IV SCH ×2 (09:05→22:03)
[2020-09-16] MEDS: SILVER SULFADIAZINE 1% CREAM 25GM TOP SCH (09:10)
[2020-09-16 13:24] LABS: BASOPHILS % 0.6 % (0.0-2.0); LYMPHOCYTES % 19.7 % (20.0-50.0); MEAN CORPUSCULAR HEMOGLOBIN 29.1 pg (28.0-32.0); MEAN CORPUSCULAR VOLUME 89.8 fL (81.0-99.0); MEAN PLATELET VOLUME 8.5 fl (7.4-10.4); MONOCYTES % 11.5 % (2.0-8.0); NEUTROPHILS % 67.2 % (40.0-76.0); PLATELET 420 x1000/uL (130-400); RED BLOOD CELL COUNT 2.21 mill/uL (4.2-5.4); RED CELL DISTRIBUTION WIDTH 17.2 % (11.6-14.6)
[2020-09-16 13:29] LABS: CHLORIDE 104 mEq/L (98-107)
[2020-09-16 13:53] LABS: HEMATOCRIT. 19.9 % (36.0-48.0); HEMOGLOBIN. 6.4 g/dL (12.0-16.0)
[2020-09-16] MEDS ORDERED: MIDODRINE HCL 5MG TABLET PO SCH (17:00)
[2020-09-16] MEDS ORDERED: SODIUM CHLORIDE 0.9% 500 ML IV ONE (18:30)
[2020-09-16 21:54] LABS: HEMATOCRIT 23.8 % (36.0-48.0); HEMOGLOBIN 8.2 g/dL (12.0-16.0)
== END 2020-09-16 23:51 | DRG 871 ==
LOC: ER 15:06 → 7EST 20:22 → ENRESERV 09-02 07:13 → 5EST 09-10 14:56
PROVIDERS: ADMIT Internal Medicine; ATTEND Internal Medicine
PROC: 4A10X4Z Monitoring of Central Nervous Electrical Activity, External Approach (ICD-10-PCS; 2020-09-05)
PROC: 02HV33Z Insertion of Infusion Device into Superior Vena Cava, Percutaneous Approach (ICD-10-PCS; 2020-09-05)
PROC: B518ZZA Fluoroscopy of Superior Vena Cava, Guidance (ICD-10-PCS; 2020-09-05)
PROC: 30233N1 Transfusion of Nonautologous Red Blood Cells into Peripheral Vein, Percutaneous Approach (ICD-10-PCS; principal; 2020-09-16)
DX: A41.9 Sepsis, unspecified organism (principal); G93.41 Metabolic encephalopathy; E43 Unspecified severe protein-calorie malnutrition; J69.0 Pneumonitis due to inhalation of food and vomit; L03.119 Cellulitis of unspecified part of limb; L97.909 Non-pressure chronic ulcer of unspecified part of unspecified lower leg with unspecified severity; Z68.41 Body mass index [BMI] 40.0-44.9, adult; E87.0 Hyperosmolality and hypernatremia; K56.7 Ileus, unspecified; N17.9 Acute kidney failure, unspecified; D64.9 Anemia, unspecified; E11.9 Type 2 diabetes mellitus without complications; E87.6 Hypokalemia; E87.8 Other disorders of electrolyte and fluid balance, not elsewhere classified; I89.0 Lymphedema, not elsewhere classified; I16.0 Hypertensive urgency; I27.20 Pulmonary hypertension, unspecified; R74.01 Elevation of levels of liver transaminase levels; I10 Essential (primary) hypertension; E66.01 Morbid (severe) obesity due to excess calories; R13.12 Dysphagia, oropharyngeal phase; Z20.822 Contact with and (suspected) exposure to COVID-19; I87.8 Other specified disorders of veins; Z88.8 Allergy status to other drugs, medicaments and biological substances; Z91.010 Allergy to peanuts; Z79.899 Other long term (current) drug therapy; Z79.82 Long term (current) use of aspirin; Z79.1 Long term (current) use of non-steroidal anti-inflammatories (NSAID); Z86.73 Personal history of transient ischemic attack (TIA), and cerebral infarction without residual deficits; Z79.4 Long term (current) use of insulin; Z79.811 Long term (current) use of aromatase inhibitors; R06.03 Acute respiratory distress
CPT/HCPCS: 36415; 36573; 36600; 70551; 71045; 74018; 80048; 80053; 81003; 82375; 82550; 82607; 82805; 82962; 83036; 83605; 83615; 84145; 84443; 84484; 85014; 85018; 85025; 85044; 85651; 86038; 86140; 86850; 86870; 86900; 86920; 87426; 92610; 93005; 93970; 94640; 95816; 99285; A6261; C1725; C1893; C9113; J0360; J0696; J1644; J1815; J2270; J2543; J2765; J3370; J3490; J7030; J7060; J7070; P9016